=== PATIENT | female | born 1965 | race Hispanic/Latino ===

== ENCOUNTER 2017-07-21 09:25 | Outpatient (CLI) | payer BC, MEDICARE | END 2017-07-21 09:26 | disposition home or self-care (01) | LOC: ECHO 09:25 | PROVIDERS: ATTEND Internal Medicine | DX: I08.0 Rheumatic disorders of both mitral and aortic valves (principal); I10 Essential (primary) hypertension; F17.210 Nicotine dependence, cigarettes, uncomplicated; Z90.49 Acquired absence of other specified parts of digestive tract | CPT/HCPCS: 93306 ==

== ENCOUNTER 2017-10-11 08:34 | Outpatient (CLI) | payer MEDICARE ==
--- NOTE | 2017-10-11 11:09 | Ultrasound Report ---
ULTRASOUND THYROID SCAN HISTORY: Abnormal results of thyroid function studies. Findings: The thyroid gland is normal size, contour and echotexture. No evidence for nodule or cyst. A 1.1 x 0.7 x 1.2 cm subcutaneous cyst is noted in the left neck soft tissues. This may represent a sebaceous cyst. It has a benign appearance. IMPRESSION: Normal thyroid. Left neck subcutaneous cyst as described.
== END 2017-10-11 08:35 | disposition home or self-care (01) ==
LOC: US 08:34
PROVIDERS: ATTEND Nurse Practitioner
DX: E04.1 Nontoxic single thyroid nodule (principal); I10 Essential (primary) hypertension; F17.210 Nicotine dependence, cigarettes, uncomplicated; Z90.49 Acquired absence of other specified parts of digestive tract
CPT/HCPCS: 76536

== ENCOUNTER 2017-10-26 10:38 | Outpatient (CLI) | payer MEDICARE ==
--- NOTE | 2017-10-26 11:39 | Cat Scan Report ---
CT HEAD WITHOUT CONTRAST: HISTORY: Headache. TECHNIQUE: Sequential 2.5mm CT images. COMPARISON: none. FINDINGS: Cerebral Parenchyma: Within normal limits. Cerebellum: Within normal limits. Brainstem: Within normal limits. Ventricles: Normal. Sella: Normal. Extra-axial spaces: Normal. Basal Cisterns: Normal. Intracranial Hemorrhage: None. Midline Shift: None. Calvarium: Normal. Sinuses: Normal. Mastoid Air Cells: Normal. Visualized Orbits: Normal. IMPRESSION: Cranial CT scan within normal limits.
== END 2017-10-26 10:39 | disposition home or self-care (01) ==
LOC: CT 10:38
PROVIDERS: ATTEND Nurse Practitioner
DX: R51 Headache (principal); I10 Essential (primary) hypertension; F17.210 Nicotine dependence, cigarettes, uncomplicated; Z90.49 Acquired absence of other specified parts of digestive tract
CPT/HCPCS: 70450

== ENCOUNTER 2018-02-21 08:53 | Observation (INO) | payer MEDICARE ==
--- NOTE | 2018-02-21 09:41 | Emergency Department Report ---
ED General Adult HPI - General Chief complaint: High BP Stated complaint: HBP/HEADACHE/CHEST Time Seen by Provider: 02/21/18 09:13 Source: patient Mode of arrival: Ambulatory Limitations: No Limitations - History of Present Illness Initial comments: 53-year-old female with history of hypertension presents to ED with elevated blood pressure times a month. The patient states 5 months ago her BP medications were changed from bystolic and nifedipine to metoprolol and nifedipine due to loss of insurance. Patient says she has not been taking the nifedipine because it causes heart palpitations. States systolic BP has been in the 200s. Patient also reports intermittent chest pain, described as achy feeling for the last month. Reports associated shortness of breath. Denies nausea, vomiting, diaphoresis, leg pain or swelling. Patient seen one month ago here in this ED for similar complaints, had negative EKG, troponin, d-dimer. Patient was not admitted at that time. -: month(s) (1) Location: chest Severity scale (0 -10): 5 Quality: aching Consistency: intermittent Improves with: none Worsens with: none Associated Symptoms: chest pain, shortness of breath. denies: diaphoresis, fever/chills, headaches, nausea/vomiting - Related Data Home Medications Medication Instructions Recorded Confirmed Last Taken AtorvaSTATin [Lipitor] 10 mg PO QHS 01/09/18 01/09/18 01/08/18 Diclofenac Sodium 50 mg PO DAILY 01/09/18 01/09/18 01/08/18 HYDROcodone/APAP 7.5-325 [[place] 1 tab PO BID 01/09/18 01/09/18 01/08/18 7.5-325 mg TAB] Levothyroxine [Synthroid] 1 tab PO DAILY 01/09/18 01/09/18 01/08/18 NIFEdipine [Nifedipine] 40 mg PO QHS 01/09/18 01/09/18 01/08/18 Naloxegol Oxalate [Movantik] 25 mg PO DAILY 01/09/18 01/09/18 01/08/18 Nebivolol HCl [Bystolic] 5 mg PO DAILY 01/09/18 01/09/18 01/08/18 Omeprazole 1 tab PO DAILY 01/09/18 01/09/18 01/08/18 hydroCHLOROthiazide [HCTZ] 1 tab PO DAILY 1201/09/18 01/08/18 tiZANidine [Zanaflex] 1 - 2 tab PO DAILY 01/09/18 01/09/18 01/08/18 Previous Rx's Medication Instructions Recorded Last Taken Type Albuterol Sulfate [Ventolin HFA] 2 puff IH Q4H PRN #1 hfa.aer.ad 01/09/18 Unknown Rx Azithromycin 250 mg PO DAILY #4 tablet 01/09/18 Unknown Rx Benzonatate [Tessalon Perles] 100 mg PO Q8HR PRN #20 capsule 01/09/18 Unknown Rx predniSONE [Deltasone] 20 mg PO DAILY #5 tablet 01/09/18 Unknown Rx Furosemide [Lasix] 20 mg PO DAILY #14 tablet 01/25/18 Unknown Rx Potassium Chloride [K-Dur] 10 meq PO QDAY #14 tablet 01/25/18 Unknown Rx Allergies Allergy/AdvReac Type Severity Reaction Status Date / Time ibuprofen [From Motrin] Allergy Diarrhea Verified 09/18/14 22:08 ED Review of Systems ROS: Stated complaint: HBP/HEADACHE/CHEST Other details as noted in HPI Comment: All other systems reviewed and negative Constitutional: denies: chills, fever Respiratory: shortness of breath Cardiovascular: chest pain Gastrointestinal: denies: nausea, vomiting Musculoskeletal: other (denies leg pain or swelling) ED Past Medical Hx - Past Medical History Previous Medical History?: Yes Hx Hypertension: Yes Hx Psychiatric Treatment: Yes (Anxiety) Hx COPD: Yes (no home O2) Additional medical history: mitral valve regur. degenarative disc - Surgical History Past Surgical History?: Yes Hx Cholecystectomy: Yes Additional Surgical History: neck, Tubal ligation, - Social History Smoking Status: Current Every Day Smoker Substance Use Type: None - Medications Home Medications: Home Medications Medication Instructions Recorded Confirmed Last Taken Type Albuterol Sulfate [Ventolin HFA] 2 puff IH Q4H PRN #1 hfa.aer.ad 01/09/18 Unknown Rx AtorvaSTATin [Lipitor] 10 mg PO QHS 01/09/18 01/09/18 01/08/18 History Azithromycin 250 mg PO DAILY #4 tablet 01/09/18 Unknown Rx Benzonatate [Tessalon Perles] 100 mg PO Q8HR PRN #20 capsule 01/09/18 Unknown Rx Diclofenac Sodium 50 mg PO DAILY 01/09/18 01/09/18 01/08/18 History HYDROcodone/APAP 7.5-325 [[place] 1 tab PO BID 01/09/18 01/09/18 01/08/18 History 7.5-325 mg TAB] Levothyroxine [Synthroid] 1 tab PO DAILY 01/09/18 01/09/18 01/08/18 History NIFEdipine [Nifedipine] 40 mg PO QHS 01/09/18 01/09/18 01/08/18 History Naloxegol Oxalate [Movantik] 25 mg PO DAILY 01/09/18 01/09/18 01/08/18 History Nebivolol HCl [Bystolic] 5 mg PO DAILY 01/09/18 01/09/18 01/08/18 History Omeprazole 1 tab PO DAILY 01/09/18 01/09/18 01/08/18 History hydroCHLOROthiazide [HCTZ] 1 tab PO DAILY 01/09/18 01/09/18 01/08/18 History predniSONE [Deltasone] 20 mg PO DAILY #5 tablet 01/09/18 Unknown Rx tiZANidine [Zanaflex] 1 - 2 tab PO DAILY 01/09/18 01/09/18 01/08/18 History Furosemide [Lasix] 20 mg PO DAILY #14 tablet 01/25/18 Unknown Rx Potassium Chloride [K-Dur] 10 meq PO QDAY #14 tablet 01/25/18 Unknown Rx ED Physical Exam - General Limitations: No Limitations General appearance: alert, in no apparent distress - Head Head exam: Present: atraumatic, normocephalic - Eye Eye exam: Present: normal appearance - ENT ENT exam: Present: mucous membranes moist - Neck Neck exam: Present: normal inspection - Respiratory Respiratory exam: Present: normal lung sounds bilaterally. Absent: respiratory distress - Cardiovascular Cardiovascular Exam: Present: regular rate, normal rhythm - GI/Abdominal GI/Abdominal exam: Present: soft. Absent: distended - Extremities Exam Extremities exam: Absent: pedal edema, calf tenderness - Neurological Exam Neurological exam: Present: alert, oriented X3 - Psychiatric Psychiatric exam: Present: normal affect, normal mood - Skin Skin exam: Present: warm, dry, intact, normal color ED Course Vital Signs 02/21/18 02/21/18 02/21/18 08:58 09:17 09:30 Temperature 97.8 F Pulse Rate 65 65 57 L Respiratory 18 11 L 11 L Rate Blood Pressure 204/89 196/71 O2 Sat by Pulse 98 97 Oximetry 02/21/18 02/21/18 02/21/18 09:46 10:00 10:30 Temperature Pulse Rate 64 53 L 71 Respiratory 15 12 16 Rate Blood Pressure 169/82 169/82 174/77 O2 Sat by Pulse 97 97 93 Oximetry 02/21/18 11:00 Temperature Pulse Rate 46 L Respiratory 14 Rate Blood Pressure 167/71 O2 Sat by Pulse 97 Oximetry ED Medical Decision Making - Lab Data Result diagrams: 02/21/18 09:36 02/21/18 09:36 - EKG Data -: EKG Interpreted by Nh EKG shows normal: sinus rhythm, axis, intervals, QRS complexes Rate: normal - EKG Data Interpretation: other (T wave inversion in V2) - Radiology Data Radiology results: report reviewed, image reviewed Critical care attestation.: If time is entered above; I have spent that time in minutes in the direct care of this critically ill patient, excluding procedure time. ED Disposition Clinical Impression: Chest pain Disposition: OP ADMIT IP TO THIS HOSP Is pt being admited?: Yes Condition: Stable Instructions: Chest Pain (ED) Referrals: PRIMARY CARE, [Primary Care Provider] - 3-5 Days Time of Disposition: 10:38
--- NOTE | 2018-02-21 09:53 | XRay Report ---
AP CHEST: HISTORY: chest pain AP view of the chest demonstrates a normal mediastinal and cardiac contour with clear lungs and normal bony and soft tissue structures. Lower cervical fusion changes are noted. No change since IMPRESSION: Unremarkable AP chest.
[2018-02-21 10:07] LABS: Basophils # (Auto) 0.1 K/mm3 (0.0-0.1); Basophils % (Auto) 1.3 % (0.0-1.8); Eosinophils # (Auto) 0.6 K/mm3 (0.0-0.4); Eosinophils % (Auto) 7.5 % (0.0-4.3); Hematocrit 40.9 % (30.3-42.9); Hemoglobin 13.7 gm/dl (10.1-14.3); Lymphocytes # (Auto) 3.4 K/mm3 (1.2-5.4); Lymphocytes % (Auto) 40.4 % (13.4-35.0); Mean Corpuscular HGB Conc 34 % (30-34); Mean Corpuscular Volume 82 fl (79-97); Monocytes # (Auto) 0.8 K/mm3 (0.0-0.8); Monocytes % (Auto) 9.3 % (0.0-7.3); Platelet Count 199 K/mm3 (140-440); Red Cell Distribution Width 14.4 % (13.2-15.2)
[2018-02-21 10:27] LABS: BUN/Creatinine Ratio 14; Blood Urea Nitrogen 10 mg/dL (7-17); Calcium 9.3 mg/dL (8.4-10.2); Hemolysis Index 12
--- NOTE | 2018-02-21 13:08 | History and Physical Report ---
History of Present Illness Date of examination: 02/21/18 Date of admission: 02/21/18 10:38 Chief complaint: Chest pain History of present illness: 53-year-old female patient with significant history of hypertension presented to the emergency room with atypical chest pain headache and uncontrolled blood pressures, Patient was noncompliant with medications due to loss of her insurance and her bili peaked blood pressures this morning were [id number] systolic Patient denies nausea vomiting or abdominal pain Reports mild shortness of breath and mild headache EKG no acute ST T changes 2 sets of cardiac enzymes are negative Patient has significant history of ongoing tobacco use Past History Past Medical History: hypertension, hyperlipidemia, other (obesity, anxiety) Past Surgical History: cholecystectomy, Other (neck Surgery, tubal ligation) Social history: lives with family, smoking. denies: alcohol abuse, prescription drug abuse Family history: hypertension Medications and Allergies Allergies Allergy/AdvReac Type Severity Reaction Status Date / Time ibuprofen [From Motrin] Allergy Diarrhea Verified 09/18/14 22:08 Home Medications Medication Instructions Recorded Confirmed Last Taken Type Albuterol Sulfate [Ventolin HFA] 2 puff IH Q4H PRN #1 hfa.aer.ad 01/09/18 02/21/18 02/20/18 Rx AtorvaSTATin [Lipitor] 10 mg PO QHS 01/09/18 02/21/18 02/20/18 History Diclofenac Sodium 50 mg PO DAILY 01/09/18 02/21/18 02/20/18 History HYDROcodone/APAP 7.5-325 [[place] 1 tab PO BID 01/09/18 02/21/18 02/20/18 History 7.5-325 mg TAB] NIFEdipine [Nifedipine] 40 mg PO QHS 01/09/18 02/21/18 02/20/18 History Naloxegol Oxalate [Movantik] 25 mg PO DAILY 01/09/18 02/21/18 02/20/18 History tiZANidine [Zanaflex] 1 - 2 tab PO DAILY 01/09/18 02/21/18 02/20/18 History Review of Systems Constitutional: no weight loss, no weight gain Ears, nose, mouth and throat: no nasal congestion, no nasal discharge Cardiovascular: chest pain, high blood pressure, no orthopnea, no palpitations Respiratory: no cough, no cough with sputum, no shortness of breath Gastrointestinal: no abdominal pain, no nausea, no vomiting Genitourinary Female: no flank pain, no dysuria Musculoskeletal: no myalgias, no arthritis Integumentary: no rash, no pruritis Neurological: no paralysis, no weakness Psychiatric: anxiety, no depression Endocrine: no cold intolerance, no heat intolerance, no polydipsia, no polyuria Hematologic/Lymphatic: no easy bruising, no easy bleeding Allergic/Immunologic: no urticaria, no allergic rhinitis Exam - Constitutional Vitals: Temp Pulse Resp BP Pulse Ox 97.8 F 46 L 14 167/71 97 02/21/18 08:58 02/21/18 11:00 02/21/18 11:00 02/21/18 11:00 02/21/18 11:00 General appearance: Present: no acute distress, well-nourished, cachectic - EENT Eyes: Present: PERRL, EOM intact - Neck Neck: Present: supple, normal ROM - Respiratory Respiratory effort: normal Respiratory: bilateral: diminished, negative: rales, rhonchi, wheezing - Cardiovascular Rhythm: regular Heart Sounds: Present: S1 & S2 - Extremities Extremities: no ischemia, No edema - Abdominal General gastrointestinal: Present: soft, non-tender, non-distended, normal bowel sounds - Integumentary Integumentary: Present: clear, warm - Musculoskeletal Musculoskeletal: strength equal bilaterally - Psychiatric Psychiatric: appropriate mood/affect, cooperative - Neurologic Neurologic: CNII-XII intact, moves all extremities Results - Labs CBC & Chem 7: 02/21/18 09:36 02/21/18 09:36 Labs: Abnormal lab results 02/21/18 Range/Units 09:36 MCH 27 L (28-32) pg Lymph % (Auto) 40.4 H (13.4-35.0) % [place] % (Auto) 9.3 H (0.0-7.3) % Eos % (Auto) 7.5 H (0.0-4.3) % Eos # 0.6 H (0.0-0.4) K/mm3 Assessment and Plan --Chest pain: Serial cardiac enzymes Echocardiogram 6 months ago normal EF 55-60%, unable to give aspirin secondary to allergy Lexiscan stress test tomorrow, , Cardiology consultation if needed --Hypertensive urgency; present on admission, significant improvement continue current antihypertensives and when necessary medications --Ongoing tobacco use; smoking cessation counseling advised nicotine patch --Dyslipidemia; continue lipid-lowering medications --Obesity; counseling weight reduction Closely monitor the patient and adjust management as needed Plan of care reviewed with the patient
[2018-02-21] MEDS ORDERED: PROAIR IH PRN (13:09)
[2018-02-21] MEDS ORDERED: PROVENTIL IH PRN (13:17)
[2018-02-21] MEDS ORDERED: ZANAFLEX PO ONE (13:18)
[2018-02-21] MEDS ORDERED: HABITROL TD ONE (13:18)
[2018-02-21] MEDS ORDERED: APRESOLINE IV PRN (13:21)
[2018-02-21] MEDS ORDERED: ZANAFLEX ONE (13:32)
[2018-02-21] MEDS ORDERED: APRESOLINE ONE ×2 (13:35→14:50)
[2018-02-21] MEDS: APRESOLINE PO SCH ×2 (14:52→21:32)
[2018-02-21] MEDS: NORCO 5/325 PO PRN (17:50)
[2018-02-21] MEDS ORDERED: NORVASC PO SCH (22:00)
[2018-02-21] MEDS ORDERED: NIFEDIPINE 40 MG PO SCH (22:00)
[2018-02-21] MEDS ORDERED: LOVENOX SUB-Q SCH (22:00)
[2018-02-22] MEDS: APRESOLINE PO SCH ×3 (04:02→15:30)
[2018-02-22] MEDS: NORCO 5/325 PO PRN ×3 (04:02→19:03)
[2018-02-22] MEDS ORDERED: ZESTRIL PO SCH (10:00)
[2018-02-22] MEDS ORDERED: HABITROL TD SCH (10:00)
[2018-02-22] MEDS ORDERED: ZANAFLEX PO SCH (10:00)
[2018-02-22] MEDS ORDERED: NON-FORMULARY (Naloxegol Oxalate [Movantik] 25 MG) PO SCH ×2 (10:00)
[2018-02-22] MEDS ORDERED: LEXISCAN IV ONE (10:02)
[2018-02-22 17:40] VITALS: BP 128/63
--- NOTE | 2018-02-22 18:41 | Discharge Summary ---
Providers - Providers Date of Admission: 02/21/18 10:38 Date of discharge: 02/22/18 Attending physician: BRIDGETTE WANG Primary care physician: [employer] Hospitalization Reason for admission: Chest pain,uncontrolled BP Condition: Stable Pertinent studies: CXR : normal Stress test : negative for reversible ischemia,LVEF 70% Hospital course: 53-year-old female patient with significant history of hypertension was admitted through emergency room with atypical chest pain headache and uncontrolled blood pressures, Patient was noncompliant with medications due to loss of her insurance and her peak blood pressures at admission was [id number] systolic managed with multiple appropriate antihypertensives, blood pressures improved to reasonable levels. Patient also had atypical chest pain,had stress test which was negative and EF of 70%. Patient,s symptoms improved,today feels better ,no new complaints,vital signs s table Physical exam unremarkable. Stable at discharge Discharge Diagnosis: --Chest pain: non cardiac ,stress test negative,EF 70% --Non cardiac chest pain: probably sec to GERD --GERD : Protonix --Hypertensive urgency; present on admission, significant improvement --Ongoing tobacco use; smoking cessation counseling advised nicotine patch --Dyslipidemia; continue lipid-lowering medications --Obesity; counseling weight reduction Disposition: DC-01 TO HOME OR SELFCARE Time spent for discharge: 32 min Core Measure Documentation - Palliative Care Palliative Care/ Comfort Measures: Not Applicable - Core Measures Any of the following diagnoses?: none Exam - Constitutional Vitals: Temp Pulse Resp BP Pulse Ox 97.9 F 75 18 128/63 98 02/22/18 17:38 02/22/18 17:39 02/22/18 17:39 02/22/18 17:39 02/22/18 17:39 General appearance: Present: no acute distress, well-nourished - EENT Eyes: Present: PERRL, EOM intact - Neck Neck: Present: supple, normal ROM - Respiratory Respiratory effort: normal Respiratory: bilateral: diminished, negative: rales, rhonchi, wheezing - Cardiovascular Rhythm: regular Heart Sounds: Present: S1 & S2 - Extremities Extremities: no ischemia, No edema - Abdominal General gastrointestinal: Present: soft, non-tender, non-distended - Integumentary Integumentary: Present: clear, warm - Musculoskeletal Musculoskeletal: strength equal bilaterally - Psychiatric Psychiatric: appropriate mood/affect, cooperative - Neurologic Neurologic: moves all extremities Plan Activity: advance as tolerated Diet: low cholesterol, low salt Follow up with: PRIMARY CARE, [Primary Care Provider] - 3-5 Days GABRIELA OSORIO MD [Staff Physician] - 7 Days Prescriptions: Famotidine [Pepcid] 20 mg PO BID #20 tablet hydrALAZINE [Apresoline TAB] 25 mg PO Q8HR #90 tablet Lisinopril [Zestril TAB] 40 mg PO DAILY #30 tablet
--- NOTE | 2018-02-22 20:06 | Progress Note ---
Hospitalist Physical - Constitutional Vitals: Temp Pulse Resp BP Pulse Ox 97.9 F 75 18 128/63 98 02/22/18 17:38 02/22/18 17:39 02/22/18 17:39 02/22/18 17:39 02/22/18 17:39 General appearance: Present: no acute distress, well-nourished Results - Labs CBC & Chem 7: 02/21/18 09:36 02/21/18 09:36 Labs: Laboratory Last Values WBC 8.5 K/mm3 (4.5-11.0) 02/21/18 09:36 RBC 5.00 M/mm3 (3.65-5.03) 02/21/18 09:36 Hgb 13.7 gm/dl (10.1-14.3) 02/21/18 09:36 Hct 40.9 % (30.3-42.9) 02/21/18 09:36 MCV 82 fl (79-97) 02/21/18 09:36 MCH 27 pg (28-32) L 02/21/18 09:36 MCHC 34 % (30-34) 02/21/18 09:36 RDW 14.4 % (13.2-15.2) 02/21/18 09:36 Plt Count 199 K/mm3 (140-440) 02/21/18 09:36 Lymph % (Auto) 40.4 % (13.4-35.0) H 02/21/18 09:36 [place] % (Auto) 9.3 % (0.0-7.3) H 02/21/18 09:36 Eos % (Auto) 7.5 % (0.0-4.3) H 02/21/18 09:36 Baso % (Auto) 1.3 % (0.0-1.8) 02/21/18 09:36 Lymph # 3.4 K/mm3 (1.2-5.4) 02/21/18 09:36 [place] # 0.8 K/mm3 (0.0-0.8) 02/21/18 09:36 Eos # 0.6 K/mm3 (0.0-0.4) H 02/21/18 09:36 Baso # 0.1 K/mm3 (0.0-0.1) 02/21/18 09:36 Seg Neutrophils % 41.5 % (40.0-70.0) 02/21/18 09:36 Seg Neutrophils # 3.5 K/mm3 (1.8-7.7) 02/21/18 09:36 Sodium 141 mmol/L (137-145) 02/21/18 09:36 Potassium 4.2 mmol/L (3.6-5.0) 02/21/18 09:36 Chloride 102.6 mmol/L (98-107) 02/21/18 09:36 Carbon Dioxide 26 mmol/L (22-30) 02/21/18 09:36 Anion Gap 17 mmol/L 02/21/18 09:36 BUN 10 mg/dL (7-17) 02/21/18 09:36 Creatinine 0.7 mg/dL (0.7-1.2) 02/21/18 09:36 Estimated GFR > 60 ml/min 02/21/18 09:36 BUN/Creatinine Ratio 14 % 02/21/18 09:36 Glucose 96 mg/dL (65-100) 02/21/18 09:36 Calcium 9.3 mg/dL (8.4-10.2) 02/21/18 09:36 Troponin T < 0.010 ng/mL (0.00-0.029) 02/21/18 14:50
--- NOTE | 2018-02-22 20:16 | Treadmill Report ---
INDICATION: Chest pain. ORDERING PHYSICIAN: Yoselin Galindo MD FINDINGS: There is no scintigraphic evidence of myocardial ischemia. The left ventricle is normal in size and systolic function. The left ventricular ejection fraction is measured at 71%. Normal wall motion and wall thickening is noted on gated imaging. CONCLUSION: Normal perfusion scan. JOB# [id number] [id number]/[email or web address]
== END 2018-02-22 19:15 | disposition home or self-care (01) ==
LOC: ED 08:53 → 4A 10:38
PROVIDERS: ADMIT Internal Medicine; ATTEND Internal Medicine
DX: R07.89 Other chest pain (principal); I16.0 Hypertensive urgency; F17.200 Nicotine dependence, unspecified, uncomplicated; E78.5 Hyperlipidemia, unspecified; E66.9 Obesity, unspecified; F41.9 Anxiety disorder, unspecified
CPT/HCPCS: 36415; 71045; 78452; 80048; 84484; 85025; 93005; 93010; 93017; 96372; 96374; 99284; 99406; A9270; A9502; G0378; J0360; J1650; J2785; J3246

== ENCOUNTER 2018-02-27 15:00 | Emergency (ER) | payer MEDICARE ==
[2018-02-27 15:13] VITALS: BP 177/76
[2018-02-27] MEDS ORDERED: VISTARIL PO ONE (15:54)
[2018-02-27] MEDS ORDERED: CATAPRES PO ONE (15:55)
--- NOTE | 2018-02-27 15:59 | Emergency Department Report ---
ED General Adult HPI - General Chief complaint: High BP Stated complaint: HBP/FILOMENA/WEAKNESS/HEADACHE Time Seen by Provider: 02/27/18 15:31 Source: patient Mode of arrival: Ambulatory Limitations: No Limitations - History of Present Illness Initial comments: 53 yo cauc. female who was just dc from the hospital returns with concern that her bp is fluctuating. bp on arrival is slightly elevated. pt is anxious about the bp. the pt smells of cigarettes- and admits to ongoing smoking. she is fixated on needing her beta kelsey, metoprolol, which was dc during most recent hospitalization. I suspect bc of her large smoking habit and TAMMI. -: Gradual, days(s) Associated Symptoms: cough, shortness of breath. denies: confusion, chest pain, diaphoresis, fever/chills, headaches, loss of appetite, malaise, nausea/vomiting, rash, seizure, syncope, weakness - Related Data Home Medications Medication Instructions Recorded Confirmed Last Taken AtorvaSTATin [Lipitor] 10 mg PO QHS 01/09/18 02/21/18 02/20/18 Diclofenac Sodium 50 mg PO DAILY 01/09/18 02/21/18 02/20/18 HYDROcodone/APAP 7.5-325 [[place] 1 tab PO BID 01/09/18 02/21/18 02/20/18 7.5-325 mg TAB] Naloxegol Oxalate [Movantik] 25 mg PO DAILY 01/09/18 02/21/18 02/20/18 tiZANidine [Zanaflex] 1 - 2 tab PO DAILY 01/09/18 02/21/18 02/20/18 Previous Rx's Medication Instructions Recorded Last Taken Type Famotidine [Pepcid] 20 mg PO BID #20 tablet 02/22/18 Unknown Rx Lisinopril [Zestril TAB] 40 mg PO DAILY #30 tablet 02/22/18 Unknown Rx hydrALAZINE [Apresoline TAB] 25 mg PO Q8HR #90 tablet 02/22/18 Unknown Rx hydrOXYzine PAMOATE [Vistaril] 50 mg PO Q12H PRN #20 capsule 02/27/18 Unknown Rx Allergies Allergy/AdvReac Type Severity Reaction Status Date / Time ibuprofen [From Motrin] Allergy Diarrhea Verified 09/18/14 22:08 ED Review of Systems ROS: Stated complaint: HBP/FILOMENA/WEAKNESS/HEADACHE Other details as noted in HPI Comment: All other systems reviewed and negative Constitutional: denies: chills Eyes: denies: eye pain ENT: denies: ear pain Respiratory: see HPI, cough, shortness of breath. denies: orthopnea Cardiovascular: as per HPI Endocrine: denies: excessive sweating Gastrointestinal: denies: abdominal pain Genitourinary: denies: urgency Musculoskeletal: denies: back pain Skin: denies: as per HPI Neurological: denies: headache Psychiatric: denies: anxiety Hematological/Lymphatic: denies: as per HPI ED Past Medical Hx - Past Medical History Hx Hypertension: Yes Hx Psychiatric Treatment: Yes (Anxiety) Hx COPD: Yes (no home O2) Additional medical history: MVP, hypothyroidism. degenarative disc. tammi - Surgical History Hx Cholecystectomy: Yes Additional Surgical History: neck, Tubal ligation, - Social History Smoking Status: Current Every Day Smoker Substance Use Type: None - Medications Home Medications: Home Medications Medication Instructions Recorded Confirmed Last Taken Type AtorvaSTATin [Lipitor] 10 mg PO QHS 01/09/18 02/21/18 02/20/18 History Diclofenac Sodium 50 mg PO DAILY 01/09/18 02/21/18 02/20/18 History HYDROcodone/APAP 7.5-325 [[place] 1 tab PO BID 01/09/18 02/21/18 02/20/18 History 7.5-325 mg TAB] Naloxegol Oxalate [Movantik] 25 mg PO DAILY 01/09/18 02/21/18 02/20/18 History tiZANidine [Zanaflex] 1 - 2 tab PO DAILY 01/09/18 02/21/18 02/20/18 History Famotidine [Pepcid] 20 mg PO BID #20 tablet 02/22/18 Unknown Rx Lisinopril [Zestril TAB] 40 mg PO DAILY #30 tablet 02/22/18 Unknown Rx hydrALAZINE [Apresoline TAB] 25 mg PO Q8HR #90 tablet 02/22/18 Unknown Rx hydrOXYzine PAMOATE [Vistaril] 50 mg PO Q12H PRN #20 capsule 02/27/18 Unknown Rx ED Physical Exam - General Limitations: No Limitations General appearance: alert - Head Head exam: Present: atraumatic - Eye Eye exam: Present: normal appearance, PERRL Pupils: Present: normal accommodation - ENT ENT exam: Present: mucous membranes moist - Neck Neck exam: Present: normal inspection - Respiratory Respiratory exam: Present: normal lung sounds bilaterally - GI/Abdominal GI/Abdominal exam: Present: soft, normal bowel sounds - Rectal Rectal exam: Present: deferred - Extremities Exam Extremities exam: Present: normal inspection - Back Exam Back exam: Present: normal inspection, full ROM - Neurological Exam Neurological exam: Present: alert, oriented X3 - Psychiatric Psychiatric exam: Present: anxious - Skin Skin exam: Present: warm, dry ED Course Vital Signs 02/27/18 02/27/18 02/27/18 15:06 15:40 16:05 Temperature 97.5 F L Pulse Rate 99 H 99 H Respiratory 18 15 Rate Blood Pressure 177/76 177/76 O2 Sat by Pulse 97 Oximetry ED Medical Decision Making - EKG Data EKG shows normal: sinus rhythm Rate: normal - EKG Data When compared to previous EKG there are: no significant change Interpretation: no acute changes, other (normal nuc last week) - Medical Decision Making long discussion with pt and her sister. insurance resumes in 10 days at that time she can see her pcp, cardiology and pulmonary doctor who can discuss use or not of beta kelsey in the meantime pt will continue her current meds- see med rec pt wanting anxiety med. i told her we would not given her klonopin as asking but would use vistaril for short term. dc home with sister. - Differential Diagnosis anxiety Critical care attestation.: If time is entered above; I have spent that time in minutes in the direct care of this critically ill patient, excluding procedure time. ED Disposition Clinical Impression: HTN (hypertension), Anxiety Disposition: DC-01 TO HOME OR SELFCARE Is pt being admited?: No Does the pt Need Aspirin: No Condition: Stable Instructions: Hypertension (ED) Additional Instructions: low fat diet drink a lot of water every day- 2 gallon no fried food walk 30 minutes each day stop smoking follow up with pcp cindy vistaril for anxiety follow up with cardiology cindy= and discuss your beta kelsey he will consult with your pulmonology MD due to your COPD and TAMMI Prescriptions: hydrOXYzine PAMOATE [Vistaril] 50 mg PO Q12H PRN #20 capsule PRN Reason: Anxiety Referrals: PRADEEP BRENNAN MD [Primary Care Provider] - 3-5 Days Time of Disposition: 15:56
== END 2018-02-27 16:18 | disposition home or self-care (01) ==
LOC: ED 15:00
DX: I10 Essential (primary) hypertension (principal); F41.9 Anxiety disorder, unspecified; J44.9 Chronic obstructive pulmonary disease, unspecified; E03.9 Hypothyroidism, unspecified; F17.200 Nicotine dependence, unspecified, uncomplicated; Z90.49 Acquired absence of other specified parts of digestive tract; Z98.51 Tubal ligation status; Z88.5 Allergy status to narcotic agent
CPT/HCPCS: 93005; 93010; 99282

== ENCOUNTER 2018-04-05 07:31 | Emergency (ER) | payer MEDICARE ==
[2018-04-05 07:36] VITALS: BP 164/57
[2018-04-05] MEDS ORDERED: LIDOCAINE VISCOUS 2% PO ONE (09:01)
[2018-04-05] MEDS ORDERED: MUCINEX ER PO ONE (09:01)
[2018-04-05] MEDS ORDERED: TYLENOL PO ONE (09:02)
--- NOTE | 2018-04-05 09:05 | Emergency Department Report ---
Minor Respiratory - HPI Chief Complaint: Upper Respiratory Infection Stated Complaint: FLU SYMPTOMS Time Seen by Provider: 04/05/18 08:47 Duration: 1 Day Pain Location: Throat Severity: mild Minor Respiratory: Yes Sore Throat, Yes Able to Tolerate Fluids, Yes Cough, No Rhinorrhea, No Ear Pain, No Sick Contacts, No Hemoptysis, No Chest Pain, No Shortness of Breath, No Fever Other History: 63-year-old female who presents with cough cold and nasal congestion and sore throat that started yesterday. She denies fevers/chills/nausea vomiting, chest pain, shortness of breath. ED Review of Systems ROS: Stated complaint: FLU SYMPTOMS Other details as noted in HPI Comment: All other systems reviewed and negative ED Past Medical Hx - Past Medical History Hx Hypertension: Yes Hx Psychiatric Treatment: Yes (Anxiety) Hx COPD: Yes (no home O2) Additional medical history: MVP, hypothyroidism. degenarative disc. elia - Surgical History Hx Cholecystectomy: Yes Additional Surgical History: neck, Tubal ligation, - Social History Smoking Status: Current Every Day Smoker Substance Use Type: None - Medications Home Medications: Home Medications Medication Instructions Recorded Confirmed Last Taken Type AtorvaSTATin [Lipitor] 10 mg PO QHS 01/09/18 02/21/18 02/20/18 History Diclofenac Sodium 50 mg PO DAILY 01/09/18 02/21/18 02/20/18 History HYDROcodone/APAP 7.5-325 [[place] 1 tab PO BID 01/09/18 02/21/18 02/20/18 History 7.5-325 mg TAB] Naloxegol Oxalate [Movantik] 25 mg PO DAILY 01/09/18 02/21/18 02/20/18 History tiZANidine [Zanaflex] 1 - 2 tab PO DAILY 01/09/18 02/21/18 02/20/18 History Famotidine [Pepcid] 20 mg PO BID #20 tablet 02/22/18 Unknown Rx Lisinopril [Zestril TAB] 40 mg PO DAILY #30 tablet 02/22/18 Unknown Rx hydrALAZINE [Apresoline TAB] 25 mg PO Q8HR #90 tablet 02/22/18 Unknown Rx hydrOXYzine PAMOATE [Vistaril] 50 mg PO Q12H PRN #20 capsule 02/27/18 Unknown Rx Amoxicillin/Potassium Clav 1 each PO BID #14 tablet 04/05/18 Unknown Rx [Augmentin 875-125 Tablet] Nystas/Diphen/Xyl Visc/Mylanta 30 ml MM Q4H PRN #120 ml 04/05/18 Unknown Rx [Magic Mouthwash] guaiFENesin ER [Mucinex ER] 600 mg PO DAILY #10 tablet 04/05/18 Unknown Rx Minor Respiratory Exam - Exam General: Vital signs noted. No distress. Alert and acting appropriately. HEENT: Yes Moist Mucous Membranes, Yes Maxillary Tenderness, No Pharyngeal Erythema, No Pharyngeal Exudates, No Rhinorrhea, No Conjuctival Injection, No Frontal Tenderness Ear: Neither TM Bulge, Neither TM Erythema, Neither EAC Pain, Neither EAC Discharge Neck: Yes Adenopathy (cervical anterior), Yes Supple Lungs: Yes Good Air Exchange, No Wheezes, No Ronchi, No Stridor, No Cough, No Labored Respirations, No Retractions, No Use of Accessory Muscles, No Other Abnormal Lung Sounds Heart: Yes Regular, No Murmur Abdomen: Yes Normal Bowel Sounds, No Tenderness, No Peritoneal Signs Skin: No Rash, No Edema Neurologic: Alert and oriented, no deficits. Musculoskeletal: Unremarkable. ED Course Vital Signs 04/05/18 07:34 Temperature 98.6 F Pulse Rate 69 Respiratory 18 Rate Blood Pressure 164/57 O2 Sat by Pulse 99 Oximetry ED Medical Decision Making - Radiology Data Radiology results: report reviewed, image reviewed Fluoro Time In Minutes: ROUTINE CHEST, TWO VIEWS: HISTORY: Productive cough. The trachea, heart, mediastinal contour, lung gracia and bony thorax are unremarkable. No significant change since 02/21/18. IMPRESSION: Unremarkable chest x-ray. Transcribed By: TTR Dictated By: ZULEIMA BOATENG JR, MD Electronically Authenticated By: ZULEIMA BOATENG JR, MD Signed Date/Time: 04/05/18 0937 - Medical Decision Making 53-year-old female presents with sinusitis Patient received medication ED. Discussed the patient to follow up with primary care physician. Vital signs are normal she is in no acute respiratory distress. Critical care attestation.: If time is entered above; I have spent that time in minutes in the direct care of this critically ill patient, excluding procedure time. ED Disposition Clinical Impression: Sinusitis, Upper respiratory infection Disposition: DC-01 TO HOME OR SELFCARE Is pt being admited?: No Does the pt Need Aspirin: No Condition: Stable Instructions: Sinusitis (ED), Upper Respiratory Infection (ED), Viral Syndrome (ED) Additional Instructions: Make sure to follow up with the primary care physician as discussed. Take all your medications as you've been prescribed. If you have any worsening symptoms or develop new symptoms please return to ED immediately. Prescriptions: Amoxicillin/Potassium Clav [Augmentin 875-125 Tablet] 1 each PO BID #14 tablet guaiFENesin ER [Mucinex ER] 600 mg PO DAILY #10 tablet Nystas/Diphen/Xyl Visc/Mylanta [Magic Mouthwash] 30 ml MM Q4H PRN #120 ml PRN Reason: Sore Throat Referrals: SANTI MUNGUIA MD [Primary Care Provider] - 3-5 Days Forms: Work/School Release Form(ED) Time of Disposition: 10:16
--- NOTE | 2018-04-05 09:41 | XRay Report ---
ROUTINE CHEST, TWO VIEWS: HISTORY: Productive cough. The trachea, heart, mediastinal contour, lung gracia and bony thorax are unremarkable. No significant change since 02/21/18. IMPRESSION: Unremarkable chest x-ray.
== END 2018-04-05 10:30 | disposition home or self-care (01) ==
LOC: ED 07:31
DX: J01.90 Acute sinusitis, unspecified (principal); J06.9 Acute upper respiratory infection, unspecified; I10 Essential (primary) hypertension; F41.9 Anxiety disorder, unspecified; J44.9 Chronic obstructive pulmonary disease, unspecified; F17.200 Nicotine dependence, unspecified, uncomplicated; Z88.6 Allergy status to analgesic agent
CPT/HCPCS: 71046; 99283

== ENCOUNTER 2018-04-17 13:39 | Emergency (ER) | payer MEDICARE ==
--- NOTE | 2018-04-17 13:54 | Emergency Department Report ---
Blank Doc - Documentation Documentation: This is a 53-year-old female that presents with elevated b/p in PCP clinic and came to the ED. In triage b/p is at 160/55. Also stated has some SOB and ches pain. This initial assessment/diagnostic orders/clinical plan/treatment(s) is/are subject to change based on patient's health status, clinical progression and re- assessment by fellow clinical providers in the ED. Further treatment and workup at subsequent clinical providers discretion. Patient/guardians urged not to elope from the ED as their condition may be serious if not clinically assessed and managed. Initial orders include: 1- Patient sent to MAIN ED for further evaluation and treatment 2- labs 3- EKG 4- CXR
[2018-04-17 14:38] LABS: Basophils % (Auto) 0.5 % (0.0-1.8); Eosinophils # (Auto) 0.7 K/mm3 (0.0-0.4); Eosinophils % (Auto) 8.6 % (0.0-4.3); Hematocrit 38.8 % (30.3-42.9); Hemoglobin 12.8 gm/dl (10.1-14.3); Lymphocytes # (Auto) 2.5 K/mm3 (1.2-5.4); Lymphocytes % (Auto) 32.5 % (13.4-35.0); Mean Corpuscular HGB Conc 33 % (30-34); Mean Corpuscular Volume 80 fl (79-97); Monocytes # (Auto) 0.5 K/mm3 (0.0-0.8); Monocytes % (Auto) 6.8 % (0.0-7.3); Platelet Count 218 K/mm3 (140-440); Red Blood Count 4.82 M/mm3 (3.65-5.03)
--- NOTE | 2018-04-17 14:43 | XRay Report ---
ROUTINE CHEST, TWO VIEWS: HISTORY: chest pain. The trachea, heart, mediastinal contour, lung gracia and bony thorax are unremarkable. IMPRESSION: Unremarkable chest x-ray. No change since 04/05/16.
[2018-04-17 14:48] LABS: INR 0.87 (0.87-1.13)
[2018-04-17 14:49] LABS: Partial Thromboplastin Time 34.9 Sec. (24.2-36.6)
[2018-04-17 14:52] LABS: BUN/Creatinine Ratio 23; Blood Urea Nitrogen 14 mg/dL (7-17); Calcium 9.3 mg/dL (8.4-10.2); Hemolysis Index 7
[2018-04-17 19:21] VITALS: BP 180/53
== END 2018-04-17 21:00 | disposition left against medical advice (07) ==
LOC: ED 13:39
DX: I10 Essential (primary) hypertension (principal); Z53.21 Procedure and treatment not carried out due to patient leaving prior to being seen by health care provider
CPT/HCPCS: 36415; 71046; 80048; 84484; 85025; 85610; 85730; 93005; 93010

== ENCOUNTER 2018-08-31 06:22 | Emergency (ER) | payer MEDICARE ==
[2018-08-31 06:26] VITALS: BP 118/80
[2018-08-31] MEDS ORDERED: DELTASONE PO ONE (06:37)
[2018-08-31] MEDS ORDERED: BENADRYL PO ONE (06:37)
[2018-08-31] MEDS ORDERED: TYLENOL PO ONE (06:38)
--- NOTE | 2018-08-31 06:43 | Emergency Department Report ---
ED ENT HPI - General Chief complaint: Earache Stated complaint: RIGHT EAR PAIN/SINUS PRESSURE Time Seen by Provider: 08/31/18 06:36 Source: patient Mode of arrival: Ambulatory Limitations: No Limitations - History of Present Illness Initial comments: pt is a 53 y/o w/f who presents for sinus pain and pressure with right ear pain x 1 week pt states post nasal drip yellow brown foul taste , symptoms are exacerbated by position and movement , symptoms are improved by nothing tried. states low grade fever for past 3 days MD complaint: ear pain, other (sinus pain and pressure ) Onset/Timin -: week(s) Location: R ear, other (bilat maxillary sinus pain and pressure ) Severity: moderate Severity scale (0 -10): 5 Quality: sharp Consistency: constant Improves with: none Worsens with: position, movement Associated Symptoms: fever, cough, rhinorrhea - Related Data Home Medications Medication Instructions Recorded Confirmed Last Taken AtorvaSTATin [Lipitor] 10 mg PO QHS 01/09/18 05/27/18 02/20/18 Diclofenac Sodium 50 mg PO DAILY 01/09/18 05/27/18 02/20/18 Naloxegol Oxalate [Movantik] 25 mg PO DAILY 01/09/18 05/27/18 02/20/18 tiZANidine [Zanaflex 4mg TAB] 1 - 2 tab PO DAILY 01/09/18 05/27/18 02/20/18 Linaclotide [Linzess] 72 mcg PO QAM 05/29/18 05/29/18 Unknown Previous Rx's Medication Instructions Recorded Last Taken Type Famotidine [Pepcid] 20 mg PO BID #20 tablet 02/22/18 Unknown Rx hydrOXYzine PAMOATE [Vistaril] 50 mg PO Q12H PRN #20 capsule 02/27/18 Unknown Rx Nystas/Diphen/Xyl Visc/Mylanta 30 ml MM Q4H PRN #120 ml 04/05/18 Unknown Rx [Magic Mouthwash] guaiFENesin ER [Mucinex ER] 600 mg PO DAILY #10 tablet 04/05/18 Unknown Rx Azithromycin 250 mg PO DAILY #2 tablet 05/29/18 Unknown Rx Ipratropium/Albuter (Nf) 2 puff IH QID PRN #1 inha 05/29/18 Unknown Rx [Combivent (Nf)] Nicotine [Habitrol] 14 mg TD QDAY #30 patch 05/29/18 Unknown Rx Prednisone [predniSONE 10 mg 10 mg PO .TAPER #1 tab.ds.pk 05/29/18 Unknown Rx (6-Day Pack, 21 Tabs)] clonazePAM [KlonoPIN] 1 mg PO BID tablet 05/29/18 Unknown Rx Acetaminophen [Acetaminophen TAB] 1,000 mg PO Q6HR PRN #30 tablet 08/31/18 Unknown Rx Amoxicillin/Potassium Clav 1 each PO BID 10 Days #20 tablet 08/31/18 Unknown Rx [Augmentin 875-125 Tablet] Fluticasone [Flonase] 1 spray NS QDAY #1 bottle 08/31/18 Unknown Rx diphenhydrAMINE [Benadryl CAP] 25 mg PO Q6HR PRN #30 capsule 08/31/18 Unknown Rx Allergies Allergy/AdvReac Type Severity Reaction Status Date / Time ibuprofen [From Motrin] Allergy Diarrhea Verified 05/27/18 16:02 ED Dental HPI - General Chief complaint: Earache Stated complaint: RIGHT EAR PAIN/SINUS PRESSURE Time Seen by Provider: 08/31/18 06:36 Source: patient Mode of arrival: Ambulatory Limitations: No Limitations - Related Data Home Medications Medication Instructions Recorded Confirmed Last Taken AtorvaSTATin [Lipitor] 10 mg PO QHS 01/09/18 05/27/18 02/20/18 Diclofenac Sodium 50 mg PO DAILY 01/09/18 05/27/18 02/20/18 Naloxegol Oxalate [Movantik] 25 mg PO DAILY 01/09/18 05/27/18 02/20/18 tiZANidine [Zanaflex 4mg TAB] 1 - 2 tab PO DAILY 01/09/18 05/27/18 02/20/18 Linaclotide [Linzess] 72 mcg PO QAM 05/29/18 05/29/18 Unknown Previous Rx's Medication Instructions Recorded Last Taken Type Famotidine [Pepcid] 20 mg PO BID #20 tablet 02/22/18 Unknown Rx hydrOXYzine PAMOATE [Vistaril] 50 mg PO Q12H PRN #20 capsule 02/27/18 Unknown Rx Nystas/Diphen/Xyl Visc/Mylanta 30 ml MM Q4H PRN #120 ml 04/05/18 Unknown Rx [Magic Mouthwash] guaiFENesin ER [Mucinex ER] 600 mg PO DAILY #10 tablet 04/05/18 Unknown Rx Azithromycin 250 mg PO DAILY #2 tablet 05/29/18 Unknown Rx Ipratropium/Albuter (Nf) 2 puff IH QID PRN #1 inha 05/29/18 Unknown Rx [Combivent (Nf)] Nicotine [Habitrol] 14 mg TD QDAY #30 patch 05/29/18 Unknown Rx Prednisone [predniSONE 10 mg 10 mg PO .TAPER #1 tab.ds.pk 05/29/18 Unknown Rx (6-Day Pack, 21 Tabs)] clonazePAM [KlonoPIN] 1 mg PO BID tablet 05/29/18 Unknown Rx Acetaminophen [Acetaminophen TAB] 1,000 mg PO Q6HR PRN #30 tablet 08/31/18 Unknown Rx Amoxicillin/Potassium Clav 1 each PO BID 10 Days #20 tablet 08/31/18 Unknown Rx [Augmentin 875-125 Tablet] Fluticasone [Flonase] 1 spray NS QDAY #1 bottle 08/31/18 Unknown Rx diphenhydrAMINE [Benadryl CAP] 25 mg PO Q6HR PRN #30 capsule 08/31/18 Unknown Rx Allergies Allergy/AdvReac Type Severity Reaction Status Date / Time ibuprofen [From Motrin] Allergy Diarrhea Verified 05/27/18 16:02 ED Review of Systems ROS: Stated complaint: RIGHT EAR PAIN/SINUS PRESSURE Other details as noted in HPI Constitutional: fever Eyes: denies: eye pain, eye discharge, vision change ENT: ear pain, congestion Respiratory: cough. denies: shortness of breath, wheezing Cardiovascular: denies: chest pain, palpitations Endocrine: no symptoms reported Gastrointestinal: denies: abdominal pain, nausea, vomiting, diarrhea Genitourinary: denies: urgency, dysuria, discharge Musculoskeletal: denies: back pain, joint swelling, arthralgia Skin: denies: rash, lesions Neurological: denies: headache, weakness, paresthesias, vertigo Psychiatric: denies: anxiety, depression Hematological/Lymphatic: denies: easy bleeding, easy bruising ED Past Medical Hx - Past Medical History Hx Hypertension: Yes Hx Psychiatric Treatment: Yes (Anxiety) Hx COPD: Yes Additional medical history: MVP, hypothyroidism. degenarative disc. elia; fibromyalgia - Surgical History Hx Cholecystectomy: Yes Additional Surgical History: neck, Tubal ligation, - Social History Smoking Status: Current Every Day Smoker Substance Use Type: None - Medications Home Medications: Home Medications Medication Instructions Recorded Confirmed Last Taken Type AtorvaSTATin [Lipitor] 10 mg PO QHS 01/09/18 05/27/18 02/20/18 History Diclofenac Sodium 50 mg PO DAILY 01/09/18 05/27/18 02/20/18 History Naloxegol Oxalate [Movantik] 25 mg PO DAILY 01/09/18 05/27/18 02/20/18 History tiZANidine [Zanaflex 4mg TAB] 1 - 2 tab PO DAILY 01/09/18 05/27/18 02/20/18 History Famotidine [Pepcid] 20 mg PO BID #20 tablet 02/22/18 05/27/18 Unknown Rx hydrOXYzine PAMOATE [Vistaril] 50 mg PO Q12H PRN #20 capsule 02/27/18 05/27/18 Unknown Rx Nystas/Diphen/Xyl Visc/Mylanta 30 ml MM Q4H PRN #120 ml 04/05/18 05/27/18 Unknown Rx [Magic Mouthwash] guaiFENesin ER [Mucinex ER] 600 mg PO DAILY #10 tablet 04/05/18 05/27/18 Unknown Rx Azithromycin 250 mg PO DAILY #2 tablet 05/29/18 Unknown Rx Ipratropium/Albuter (Nf) 2 puff IH QID PRN #1 inha 05/29/18 Unknown Rx [Combivent (Nf)] Linaclotide [Linzess] 72 mcg PO QAM 05/29/18 05/29/18 Unknown History Nicotine [Habitrol] 14 mg TD QDAY #30 patch 05/29/18 Unknown Rx Prednisone [predniSONE 10 mg 10 mg PO .TAPER #1 tab.ds.pk 05/29/18 Unknown Rx (6-Day Pack, 21 Tabs)] clonazePAM [KlonoPIN] 1 mg PO BID tablet 05/29/18 Unknown Rx Acetaminophen [Acetaminophen TAB] 1,000 mg PO Q6HR PRN #30 tablet 08/31/18 Unknown Rx Amoxicillin/Potassium Clav 1 each PO BID 10 Days #20 tablet 08/31/18 Unknown Rx [Augmentin 875-125 Tablet] Fluticasone [Flonase] 1 spray NS QDAY #1 bottle 08/31/18 Unknown Rx diphenhydrAMINE [Benadryl CAP] 25 mg PO Q6HR PRN #30 capsule 08/31/18 Unknown Rx ED Physical Exam - General Limitations: No Limitations General appearance: alert, in no apparent distress - Head Head exam: Present: atraumatic, normocephalic - Eye Eye exam: Present: normal appearance, EOMI Pupils: Present: normal accommodation - ENT ENT exam: Present: mucous membranes moist, TM's normal bilaterally, normal external ear exam, other (bilat maxillary sinus pain and swelling mild erythema ) - Expanded ENT Exam Expanded Ear exam: Present: normal external inspection Mouth exam: Absent: trismus Teeth exam: Present: normal inspection Throat exam: Positive: normal inspection, tonsillar erythema, tonsillomegaly, other (uvula midline no stridor no wheezing no exudate no lesions ). Negative: tonsillar exudate, R peritonsillar mass, L peritonsillar mass - Neck Neck exam: Present: normal inspection, full ROM, lymphadenopathy. Absent: tenderness, meningismus, thyromegaly - Expanded Neck Exam Expanded Neck exam: Present: tenderness. Absent: midline deformity, anterior neck swelling, thyroid mass, carotid bruit, tracheal deviation - Respiratory Respiratory exam: Present: normal lung sounds bilaterally. Absent: respiratory distress, wheezes, stridor, chest wall tenderness - Cardiovascular Cardiovascular Exam: Present: regular rate, normal rhythm, normal heart sounds. Absent: systolic murmur, diastolic murmur, rubs, gallop - GI/Abdominal GI/Abdominal exam: Present: soft, normal bowel sounds. Absent: guarding, rebound, bruit, hernia - Rectal Rectal exam: Present: deferred - External exam: Present: other (deferred ) - Extremities Exam Extremities exam: Present: normal inspection, full ROM, tenderness, normal capillary refill. Absent: pedal edema, joint swelling, calf tenderness - Back Exam Back exam: Present: full ROM, tenderness, vertebral tenderness. Absent: CVA tenderness (R), CVA tenderness (L), muscle spasm, paraspinal tenderness, rash noted - Neurological Exam Neurological exam: Present: alert, oriented X3, CN II-XII intact, abnormal gait, motor sensory deficit, reflexes normal - Psychiatric Psychiatric exam: Present: normal affect, normal mood - Skin Skin exam: Present: warm, dry, intact, normal color. Absent: rash ED Course Vital Signs 08/31/18 06:23 Temperature 96.9 F L Pulse Rate 72 Respiratory 18 Rate Blood Pressure 118/80 O2 Sat by Pulse 96 Oximetry ED Medical Decision Making - Medical Decision Making this is sinusitis plan: dc to home with rx for augmentin, benadryl, flonase, tylenol follow up with pcp in 2-3 days Critical care attestation.: If time is entered above; I have spent that time in minutes in the direct care of this critically ill patient, excluding procedure time. ED Disposition Clinical Impression: Sinusitis Qualifiers: Sinusitis location: maxillary Chronicity: acute Recurrence: non-recurrent Qualified Code(s): J01.00 - Acute maxillary sinusitis, unspecified Disposition: DC-01 TO HOME OR SELFCARE Is pt being admited?: No Does the pt Need Aspirin: No Condition: Stable Instructions: Sinusitis (ED) Prescriptions: Acetaminophen [Acetaminophen TAB] 1,000 mg PO Q6HR PRN #30 tablet PRN Reason: pain Amoxicillin/Potassium Clav [Augmentin 875-125 Tablet] 1 each PO BID 10 Days #20 tablet diphenhydrAMINE [Benadryl CAP] 25 mg PO Q6HR PRN #30 capsule PRN Reason: sinus pressure congestion Fluticasone [Flonase] 1 spray NS QDAY #1 bottle Referrals: [facility] [Outside] - 3-5 Days Forms: Work/School Release Form(ED) Time of Disposition: 06:55
== END 2018-08-31 07:05 | disposition home or self-care (01) ==
LOC: ED 06:22
DX: J01.00 Acute maxillary sinusitis, unspecified (principal); I10 Essential (primary) hypertension; F41.9 Anxiety disorder, unspecified; J44.9 Chronic obstructive pulmonary disease, unspecified; E03.9 Hypothyroidism, unspecified; F17.200 Nicotine dependence, unspecified, uncomplicated; Z90.49 Acquired absence of other specified parts of digestive tract
CPT/HCPCS: 99282; J7512

== ENCOUNTER 2018-11-23 10:55 | Emergency (ER) | payer MEDICARE ==
[2018-11-23] MEDS ORDERED: PROVENTIL IH ONE (11:10)
[2018-11-23] MEDS ORDERED: SOLU-Medrol IV ONE (11:10)
--- NOTE | 2018-11-23 11:12 | Emergency Department Report ---
ED Asthma HPI - General Chief Complaint: Dyspnea/Respdistress Stated Complaint: SOB Time Seen by Provider: 11/23/18 11:06 Source: patient Mode of arrival: Ambulatory Limitations: No Limitations - History of Present Illness Initial Comments: 53 yo cauc. female known to us. Sheh as COPD and continues to smoke. Ran out of her inhaler and comes to ER co SOB. No fever. No sputum. Home meds belbuca diclofenac lisinopril hctz hydroxyzine ompeprazole tizanidine PCP Dr Parra Denies CP. Denies fever or chills. Denies sputum. Ambulatory to ER MD Complaint: shortness of breath -: Gradual, days(s) Asthma History: childhood onset, followed by specialist Severity: mild Context: ran out of meds, medication non-compliance Associated Symptoms: none - Related Data Current Asthma Therapy: none Home Medications Medication Instructions Recorded Confirmed Last Taken Diclofenac Sodium 50 mg PO DAILY 01/09/18 05/27/18 02/20/18 tiZANidine [Zanaflex 4mg TAB] 1 - 2 tab PO DAILY 01/09/18 05/27/18 02/20/18 Previous Rx's Medication Instructions Recorded Last Taken Type hydrOXYzine PAMOATE [Vistaril] 50 mg PO Q12H PRN #20 capsule 02/27/18 Unknown Rx Ipratropium/Albuter (Nf) 2 puff IH QID PRN #1 inha 05/29/18 Unknown Rx [Combivent (Nf)] Albuterol Sulfate [Proair 90 mcg IH QID PRN #1 aer.pow.ba 11/23/18 Unknown Rx Respiclick] Fluticasone [Flonase] 1 spray NS QDAY #1 bottle 11/23/18 Unknown Rx methylPREDNISolone [Medrol 4MG 4 mg PO UNK #1 tab.ds.pk 11/23/18 Unknown Rx DOSEPAK (21 tabs)] Allergies Allergy/AdvReac Type Severity Reaction Status Date / Time ibuprofen [From Motrin] Allergy Diarrhea Verified 05/27/18 16:02 ED Review of Systems ROS: Stated complaint: SOB Other details as noted in HPI Comment: All other systems reviewed and negative ED Past Medical Hx - Past Medical History Previous Medical History?: Yes Hx Hypertension: Yes Hx CVA: No Hx Heart Attack/AMI: No Hx Congestive Heart Failure: No Hx Diabetes: No Hx Deep Vein Thrombosis: No Hx Pulmonary Embolism: No Hx GERD: No Hx Liver Disease: No Hx Renal Disease: No Hx of Cancer: No Hx Sickle Cell Disease: No Hx Arthritis: No Hx Headaches / Migraines: No Hx Seizures: No Hx Kidney Stones: No Hx Psychiatric Treatment: Yes (Anxiety) Hx Asthma: Yes Hx COPD: Yes Hx Tuberculosis: No Hx Dementia: No Hx HIV: No Additional medical history: MVP, hypothyroidism. degenarative disc. elia; f ibromyalgia - Surgical History Past Surgical History?: Yes Hx Cholecystectomy: Yes Additional Surgical History: neck, Tubal ligation, - Family History Family history: no significant, other - Social History Smoking Status: Current Every Day Smoker Substance Use Type: None - Medications Home Medications: Home Medications Medication Instructions Recorded Confirmed Last Taken Type Diclofenac Sodium 50 mg PO DAILY 01/09/18 05/27/18 02/20/18 History tiZANidine [Zanaflex 4mg TAB] 1 - 2 tab PO DAILY 01/09/18 05/27/18 02/20/18 History hydrOXYzine PAMOATE [Vistaril] 50 mg PO Q12H PRN #20 capsule 02/27/18 05/27/18 Unknown Rx Ipratropium/Albuter (Nf) 2 puff IH QID PRN #1 inha 05/29/18 Unknown Rx [Combivent (Nf)] Albuterol Sulfate [Proair 90 mcg IH QID PRN #1 aer.pow.ba 11/23/18 Unknown Rx Respiclick] Fluticasone [Flonase] 1 spray NS QDAY #1 bottle 11/23/18 Unknown Rx methylPREDNISolone [Medrol 4MG 4 mg PO UNK #1 tab.ds.pk 11/23/18 Unknown Rx DOSEPAK (21 tabs)] ED Physical Exam - General Limitations: No Limitations General appearance: alert - Head Head exam: Present: normocephalic - Eye Eye exam: Present: normal appearance, PERRL - ENT ENT exam: Present: mucous membranes moist - Neck Neck exam: Present: normal inspection - Respiratory Respiratory exam: Present: normal lung sounds bilaterally, wheezes - Cardiovascular Cardiovascular Exam: Present: regular rate - GI/Abdominal GI/Abdominal exam: Present: soft, normal bowel sounds - Rectal Rectal exam: Present: deferred - Extremities Exam Extremities exam: Present: normal inspection, full ROM - Back Exam Back exam: Present: normal inspection, full ROM - Neurological Exam Neurological exam: Present: alert, oriented X3 - Psychiatric Psychiatric exam: Present: normal affect, normal mood - Skin Skin exam: Present: warm, dry, intact ED Course Vital Signs 11/23/18 11/23/18 11:03 11:54 Temperature 97.7 F Pulse Rate 82 Pulse Rate [ 79 Anterior Bilateral Throughout] Respiratory 22 Rate Respiratory 18 Rate [Anterior Bilateral Throughout] Blood Pressure 192/82 O2 Sat by Pulse 98 Oximetry - Reevaluation(s) Reevaluation #1: 11/23/18 12:27 improved with duoneb ED Medical Decision Making - Lab Data Result diagrams: 11/23/18 11:14 11/23/18 11:14 - Radiology Data Radiology results: report reviewed, image reviewed - Medical Decision Making xray noted no fever no sputum duoneb/solumedrol in ER dc home with dc plan of care and pcp follow up Vital Signs 11/23/18 11:03 Temperature 97.7 F Pulse Rate 82 Respiratory 22 Rate Blood Pressure 192/82 O2 Sat by Pulse 98 Oximetry Lab Results 11/23/18 Range/Units 11:14 WBC 5.9 (4.5-11.0) K/mm3 RBC 4.82 (3.65-5.03) M/mm3 Hgb 12.8 (10.1-14.3) gm/dl Hct 37.8 (30.3-42.9) % MCV 79 (79-97) fl MCH 27 L (28-32) pg MCHC 34 (30-34) % RDW 15.0 (13.2-15.2) % Plt Count 195 (140-440) K/mm3 Lymph % (Auto) 29.9 (13.4-35.0) % Todd % (Auto) 6.5 (0.0-7.3) % Eos % (Auto) 8.7 H (0.0-4.3) % Baso % (Auto) 1.3 (0.0-1.8) % Lymph # 1.8 (1.2-5.4) K/mm3 Todd # 0.4 (0.0-0.8) K/mm3 Eos # 0.5 H (0.0-0.4) K/mm3 Baso # 0.1 (0.0-0.1) K/mm3 Seg Neutrophils % 53.6 (40.0-70.0) % Seg Neutrophils # 3.2 (1.8-7.7) K/mm3 - Differential Diagnosis copd ae with or without infection Critical care attestation.: If time is entered above; I have spent that time in minutes in the direct care of this critically ill patient, excluding procedure time. ED Disposition Clinical Impression: Nicotine dependence, COPD with acute exacerbation Disposition: TO HOME OR SELFCARE Is pt being admited?: No Does the pt Need Aspirin: No Condition: Stable Instructions: Chronic Obstructive Pulmonary Disease (ED) Additional Instructions: continue home meds meds as ordered today follow up with pcp for recheck on Tuesday diet and activity as tolerated Prescriptions: Fluticasone [Flonase] 1 spray NS QDAY #1 bottle methylPREDNISolone [Medrol 4MG DOSEPAK (21 tabs)] 4 mg PO UNK #1 tab.ds.pk Albuterol Sulfate [Proair Respiclick] 90 mcg IH QID PRN #1 aer.pow.ba PRN Reason: Wheezing Referrals: [facility] [Outside] - 3-5 Days Time of Disposition: 11:34
[2018-11-23 11:30] LABS: Basophils # (Auto) 0.1 K/mm3 (0.0-0.1); Basophils % (Auto) 1.3 % (0.0-1.8); Eosinophils # (Auto) 0.5 K/mm3 (0.0-0.4); Eosinophils % (Auto) 8.7 % (0.0-4.3); Hematocrit 37.8 % (30.3-42.9); Hemoglobin 12.8 gm/dl (10.1-14.3); Lymphocytes # (Auto) 1.8 K/mm3 (1.2-5.4); Lymphocytes % (Auto) 29.9 % (13.4-35.0); Mean Corpuscular HGB Conc 34 % (30-34); Mean Corpuscular Volume 79 fl (79-97); Monocytes # (Auto) 0.4 K/mm3 (0.0-0.8); Monocytes % (Auto) 6.5 % (0.0-7.3); Platelet Count 195 K/mm3 (140-440); Red Blood Count 4.82 M/mm3 (3.65-5.03)
[2018-11-23] MEDS ORDERED: SOLU-Medrol IM ONE (11:46)
--- NOTE | 2018-11-23 11:46 | XRay Report ---
CHEST 2 VIEWS INDICATION: sob. COMPARISON: 05/27/2018 FINDINGS: Support devices: None. Heart: Within normal limits. Pulmonary vasculature: Large central pulmonary arteries but otherwise normal vasculature. Lungs/pleura: Lungs are hyperexpanded and hyperlucent. No airspace disease or pleural effusion. No p neumothorax. Additional findings: None. IMPRESSION: COPD and no acute cardiopulmonary process. Signer Name: Dion Esteban MD Signed: 11/23/2018 11:41 AM Workstation Name: [id number]
[2018-11-23 11:54] LABS: Alanine Aminotransferase 27 units/L (7-56); Albumin 4.1 g/dL (3.9-5); BUN/Creatinine Ratio 11; Blood Urea Nitrogen 10 mg/dL (7-17); Calcium 9.1 mg/dL (8.4-10.2); Hemolysis Index 3
[2018-11-23 14:07] VITALS: BP 142/71
== END 2018-11-23 12:50 | disposition home or self-care (01) ==
LOC: ED 10:55
DX: J44.1 Chronic obstructive pulmonary disease with (acute) exacerbation (principal); F17.200 Nicotine dependence, unspecified, uncomplicated; I10 Essential (primary) hypertension; F41.9 Anxiety disorder, unspecified; E03.9 Hypothyroidism, unspecified; M79.7 Fibromyalgia; Z90.49 Acquired absence of other specified parts of digestive tract; Z88.5 Allergy status to narcotic agent; Z79.899 Other long term (current) drug therapy
CPT/HCPCS: 36415; 71046; 80053; 85025; 94640; 96372; 99284; J2930; 94644

== ENCOUNTER 2019-03-09 08:53 | Observation (INO) | payer MEDICARE ==
--- NOTE | 2019-03-09 10:12 | XRay Report ---
CHEST 1 VIEW 03/09/2019 10:06 AM INDICATION / CLINICAL INFORMATION: Chest Pain. Additional history: Cough and fever for one week. COMPARISON: 2 views of the chest from 11/23/2018. FINDINGS: SUPPORT DEVICES: None. HEART / MEDIASTINUM: No significant abnormality. LUNGS / PLEURA: No significant pulmonary or pleural abnormality. No pneumothorax. ADDITIONAL FINDINGS: No significant additional findings. IMPRESSION: 1. No acute abnormality of the chest. Signer Name: Justin Frias MD Signed: 03/09/2019 10:08 AM Workstation Name: [id number]
[2019-03-09 10:15] LABS: Basophils # (Auto) 0.1 K/mm3 (0.0-0.1); Basophils % (Auto) 0.9 % (0.0-1.8); Eosinophils # (Auto) 0.2 K/mm3 (0.0-0.4); Eosinophils % (Auto) 3.2 % (0.0-4.3); Hematocrit 41.4 % (30.3-42.9); Hemoglobin 13.6 gm/dl (10.1-14.3); Lymphocytes # (Auto) 2.3 K/mm3 (1.2-5.4); Lymphocytes % (Auto) 30.3 % (13.4-35.0); Mean Corpuscular HGB Conc 33 % (30-34); Mean Corpuscular Volume 79 fl (79-97); Monocytes # (Auto) 0.6 K/mm3 (0.0-0.8); Monocytes % (Auto) 7.6 % (0.0-7.3); Platelet Count 162 K/mm3 (140-440); Red Blood Count 5.25 M/mm3 (3.65-5.03); Red Cell Distribution Width 14.2 % (13.2-15.2)
[2019-03-09 10:36] LABS: BUN/Creatinine Ratio 18; Blood Urea Nitrogen 23 mg/dL (7-17); Calcium 9.2 mg/dL (8.4-10.2); Hemolysis Index 22
[2019-03-09] MEDS ORDERED: ALBUTEROL 2.5 MG/3 ML NEBU IH ONE (10:42)
[2019-03-09] MEDS ORDERED: IPRATROPIUM 0.02% NEBU 2.5 ML IH ONE (10:42)
--- NOTE | 2019-03-09 10:57 | Emergency Department Report ---
HPI - General Chief Complaint: Dyspnea/Respdistress Time Seen by Provider: 03/09/19 10:31 - HPI HPI: Room 36 The patient is a 54-year-old female presenting with a chief complaint of shortness of breath and URI symptoms. The patient states she saw her primary physician on 2019 secondary to cold chills shortness of breath and a cough productive of green brown sputum. Patient states she was diagnosed with an upper respiratory tract infection and sinusitis given a prescription for Augmentin and Flonase. The patient states she completed the course of antibiotics for her symptoms have not changed. Patient complains of fatigue, rhinorrhea shortness of breath and cough. The patient has a history of COPD but is not on oxygen at home Location: [See above] Duration: [See above] Quality: [See above] Severity: [See above] Timing: [See above] Context: [See above] Modifying factors: [See above] Associated signs and symptoms: [see above] ED Past Medical Hx - Past Medical History Hx Hypertension: Yes Hx Psychiatric Treatment: Yes (Anxiety) Hx Asthma: Yes Hx COPD: Yes Additional medical history: MVP, hypothyroidism. degenarative disc. elia; fibromyalgia - Surgical History Hx Cholecystectomy: Yes Additional Surgical History: neck, Tubal ligation, - Family History Family history: no significant - Social History Smoking Status: Current Every Day Smoker (1/7 pack per day) Substance Use Type: None - Medications Home Medications: Home Medications Medication Instructions Recorded Confirmed Last Taken Type Diclofenac Sodium 50 mg PO DAILY 01/09/18 05/27/18 02/20/18 History tiZANidine [Zanaflex 4mg TAB] 1 - 2 tab PO DAILY 01/09/18 05/27/18 02/20/18 History hydrOXYzine PAMOATE [Vistaril] 50 mg PO Q12H PRN #20 capsule 02/27/18 05/27/18 Unknown Rx Ipratropium/Albuter (Nf) 2 puff IH QID PRN #1 inha 05/29/18 Unknown Rx [Combivent (Nf)] Albuterol Sulfate [Proair 90 mcg IH QID PRN #1 aer.pow.ba 11/23/18 Unknown Rx Respiclick] Fluticasone [Flonase] 1 spray NS QDAY #1 bottle 11/23/18 Unknown Rx methylPREDNISolone [Medrol 4MG 4 mg PO UNK #1 tab.ds.pk 11/23/18 Unknown Rx DOSEPAK (21 tabs)] ED Review of Systems ROS: Stated complaint: LUNGS HURTING/HEADACHE/FILOMENA Other details as noted in HPI Constitutional: chills Eyes: denies: eye pain ENT: throat pain Respiratory: cough, shortness of breath Cardiovascular: denies: chest pain Endocrine: no symptoms reported Gastrointestinal: nausea Genitourinary: denies: dysuria Musculoskeletal: myalgia Neurological: denies: headache Physical Exam - Physical Exam Vital Signs: Vital Signs 03/09/19 09:00 Temperature 98.1 F Pulse Rate 63 Respiratory 22 Rate Blood Pressure 121/56 O2 Sat by Pulse 91 Oximetry Physical Exam: GENERAL: The patient is well-developed well-nourished female lying on stretcher coughing occasionally. Be in acute distress. [] HEENT: Normocephalic. Atraumatic. Extraocular motions are intact. Patient has moist mucous Neck: No stridor CHEST/LUNGS: Faint expiratory wheezing. There is no respiratory distress noted. HEART/CARDIOVASCULAR: Regular. There is no tachycardia. There is no gallop rub or murmur. ABDOMEN: Abdomen is soft, nontender. Patient has normal bowel sounds. There is no abdominal distention. SKIN: There is no rash. There is no edema. There is no diaphoresis. NEURO: The patient is awake, alert, and oriented. The patient is cooperative. The patient has normal speech MUSCULOSKELETAL: There is no evidence of acute injury. ED Course Vital Signs 03/09/19 09:00 Temperature 98.1 F Pulse Rate 63 Respiratory 22 Rate Blood Pressure 121/56 O2 Sat by Pulse 91 Oximetry ED Medical Decision Making - Lab Data Result diagrams: 03/09/19 09:31 03/09/19 09:31 Laboratory Tests 03/09/19 03/09/19 03/09/19 09:31 09:31 09:31 WBC 7.7 RBC 5.25 H Hgb 13.6 Hct 41.4 MCV 79 MCH 26 L MCHC 33 RDW 14.2 Plt Count 162 Lymph % (Auto) 30.3 [place] % (Auto) 7.6 H Eos % (Auto) 3.2 Baso % (Auto) 0.9 Lymph # 2.3 [place] # 0.6 Eos # 0.2 Baso # 0.1 Seg Neutrophils % 58.0 Seg Neutrophils # 4.5 ABG pH ABG pCO2 ABG pO2 ABG HCO3 ABG O2 Saturation ABG O2 Content ABG Base Excess ABG Hemoglobin ABG Carboxyhemoglobin ABG Methemoglobin Oxyhemoglobin FiO2 Sodium 143 Potassium 4.2 Chloride 98.4 Carbon Dioxide 25 Anion Gap 24 BUN 23 H Creatinine 1.3 H Estimated GFR 42 BUN/Creatinine Ratio 18 Glucose 125 H Calcium 9.2 Troponin T < 0.010 HCG, Qual Negative Influenza A (Rapid) Influenza B (Rapid) 03/09/19 03/09/19 11:00 Unknown WBC RBC Hgb Hct MCV MCH MCHC RDW Plt Count Lymph % (Auto) [place] % (Auto) Eos % (Auto) Baso % (Auto) Lymph # [place] # Eos # Baso # Seg Neutrophils % Seg Neutrophils # ABG pH 7.480 H ABG pCO2 38.1 ABG pO2 75.6 L ABG HCO3 27.7 H ABG O2 Saturation 96.7 ABG O2 Content 18.0 ABG Base Excess 4.1 H ABG Hemoglobin 13.7 ABG Carboxyhemoglobin 2.8 ABG Methemoglobin 0.6 Oxyhemoglobin 93.4 L FiO2 21 Sodium Potassium Chloride Carbon Dioxide Anion Gap BUN Creatinine Estimated GFR BUN/Creatinine Ratio Glucose Calcium Troponin T HCG, Qual Influenza A (Rapid) Negative Influenza B (Rapid) Negative - EKG Data -: EKG Interpreted by Me EKG shows normal: sinus rhythm Rate: normal - EKG Data When compared to previous EKG there are: previous EKG unavailable Interpretation: nonspecific ST-T wave rajan (T-wave inversion in lead aVL and V2) - Radiology Data Radiology results: report reviewed (chest x-ray), image reviewed (chest x-ray) interpreted by me: Chest x-ray-no focal infiltrates, no pneumothorax [facility] [address] [place] [address] XRay Report Signed Patient: MANISHA ORTEZ MR#: [id number] : 1965 Acct:[id number] Age/Sex: 54 / F ADM Date: 03/09/19 Loc: ED Attending Dr: Ordering Physician: ED MD JOSIAH Date of Service: 03/09/19 Procedure(s): XR chest 1V ap Accession Number(s): [id number] cc: ED DOCMD Fluoro Time In Minutes: CHEST 1 VIEW 03/09/2019 10:06 AM INDICATION / CLINICAL INFORMATION: Chest Pain. Additional history: Cough and fever for one week. COMPARISON: 2 views of the chest from 11/23/2018. FINDINGS: SUPPORT DEVICES: None. HEART / MEDIASTINUM: No significant abnormality. LUNGS / PLEURA: No significant pulmonary or pleural abnormality. No pneumo thorax. ADDITIONAL FINDINGS: No significant additional findings. IMPRESSION: 1. No acute abnormality of the chest. Signer Name: Justin Frias MD Signed: 03/09/2019 10:08 AM Workstation Name: [id number] Transcribed By: ARNALDO Dictated By: Justin Frias MD Electronically Authenticated By: Justin Frias MD Signed Date/Time: 03/09/19 1008 DD/ 1006 TD/TT: - Differential Diagnosis COPD exacerbation, bronchitis, pneumonia Critical care attestation.: If time is entered above; I have spent that time in minutes in the direct care of this critically ill patient, excluding procedure time. ED Disposition Clinical Impression: Hypoxia, COPD exacerbation Disposition: DC-09 OP ADMIT IP TO THIS HOSP Is pt being admited?: Yes Does the pt Need Aspirin: No Condition: Fair Instructions: Chronic Obstructive Pulmonary Disease (ED) Time of Disposition: 11:27 (hospitalist paged (Dr Garza))
[2019-03-09 11:20] LABS: ABG Base Excess 4.1 mmol/L (-2.0-3.0); ABG HCO3 27.7 mmol/L (20.0-26.0); ABG Methemoglobin 0.6 % (0.0-1.5); ABG Oxygen Saturation 96.7 % (95.0-99.0); ABG PCO2 38.1 mm Hg; ABG PH 7.48 pH Units (7.350-7.450); ABG PO2 75.6 mm Hg (80.0-90.0)
[2019-03-09] MEDS ORDERED: HYDROcodone/ACETAMINOPHEN 5-325 MG TAB PO ONE (12:11)
[2019-03-09] MEDS ORDERED: HYDROcodone/ACETAMINOPHEN 5-325 MG TAB ONE (12:18)
[2019-03-09] MEDS ORDERED: HYDROmorphone 1 MG/1 ML INJ ONE (12:38)
[2019-03-09] MEDS: HYDROmorphone 1 MG/1 ML INJ IV PRN ×2 (13:20→18:36)
[2019-03-09] MEDS ORDERED: LIP THERAPY VASELINE TP PRN (15:00)
[2019-03-09] MEDS: guaiFENesin/CODEINE 100-10MG ORAL LIQD 5 ML PO PRN ×2 (15:12→22:13)
[2019-03-09] MEDS ORDERED: ONDANSETRON 4 MG/2 ML INJ IV PRN ×2 (18:42→22:33)
--- NOTE | 2019-03-09 22:30 | Event Note ---
Date: 03/09/19 See history and physical in the reports Acute respiratory failure COPD exacerbation
[2019-03-09] MEDS ORDERED: ACETAMINOPHEN 325 MG TAB PO PRN (22:33)
[2019-03-09] MEDS ORDERED: METOCLOPRAMIDE 10 MG/2 ML INJ IV PRN (22:33)
[2019-03-09] MEDS ORDERED: HYDROmorphone 1 MG/1 ML INJ IV PRN (22:33)
[2019-03-09] MEDS ORDERED: IPRATROPIUM/ALBUTEROL SULFATE 3 ML AMPUL.NEB IH PRN (22:36)
[2019-03-09] MEDS ORDERED: BUPRENORPHINE HCL 150 MCG BC SCH (22:45)
[2019-03-09] MEDS ORDERED: DICLOFENAC SODIUM 50 MG PO SCH (22:45)
[2019-03-09] MEDS ORDERED: ALBUTEROL 2.5 MG/3 ML NEBU IH PRN (22:50)
[2019-03-09] MEDS: DICLOFENAC EC 25 MG TAB PO SCH (23:14)
[2019-03-09] MEDS: methylPREDNISolone Sod Succinate 125 MG/2 ML INJ IV SCH (23:16)
[2019-03-10 05:03] LABS: Basophils % (Auto) 0.3 % (0.0-1.8); Eosinophils % (Auto) 0.4 % (0.0-4.3); Hematocrit 38.5 % (30.3-42.9); Hemoglobin 13.1 gm/dl (10.1-14.3); Lymphocytes # (Auto) 1.2 K/mm3 (1.2-5.4); Lymphocytes % (Auto) 20.4 % (13.4-35.0); Mean Corpuscular HGB Conc 34 % (30-34); Mean Corpuscular Volume 76 fl (79-97); Monocytes # (Auto) 0.1 K/mm3 (0.0-0.8); Monocytes % (Auto) 2.4 % (0.0-7.3); Platelet Count 156 K/mm3 (140-440); Red Blood Count 5.04 M/mm3 (3.65-5.03); Red Cell Distribution Width 14.2 % (13.2-15.2)
[2019-03-10 05:28] LABS: Albumin 4.3 g/dL (3.9-5); Calcium 9.4 mg/dL (8.4-10.2)
[2019-03-10] MEDS: methylPREDNISolone Sod Succinate 125 MG/2 ML INJ IV SCH ×3 (06:21→22:08)
[2019-03-10] MEDS: guaiFENesin/CODEINE 100-10MG ORAL LIQD 5 ML PO PRN ×3 (06:26→22:08)
[2019-03-10] MEDS: oxyCODONE /ACETAMINOPHEN 5-325MG TAB PO PRN ×3 (06:26→22:06)
[2019-03-10] MEDS: IPRATROPIUM/ALBUTEROL SULFATE 3 ML AMPUL.NEB IH SCH ×3 (08:23→20:23)
[2019-03-10] MEDS: tiZANidine TAB 4 MG TAB PO SCH ×2 (09:58→22:06)
[2019-03-10] MEDS: FAMOTIDINE 20 MG TAB PO SCH ×2 (09:58→22:06)
[2019-03-10] MEDS: hydrALAZINE 25 MG TAB PO SCH (10:00)
[2019-03-10] MEDS: LISINOPRIL 40 MG TAB PO SCH (10:01)
[2019-03-10] MEDS: DICLOFENAC EC 25 MG TAB PO SCH ×2 (10:13→22:48)
[2019-03-10] MEDS ORDERED: ALBUTEROL 2.5 MG/3 ML NEBU IH PRN (13:38)
--- NOTE | 2019-03-10 15:43 | History and Physical Report ---
CHIEF COMPLAINT: Increasing shortness of breath. HISTORY OF PRESENT ILLNESS: A 54-year-old female with history of COPD, comes in for increasing shortness of breath and cough productive of mucoid sputum for the last 3-4 days. Getting increasingly short of breath and not responding to oral antibiotics. The patient was given a prescription of Augmentin and Flonase. Cough productive of mucoid to brown sputum, sometimes greenish sputum. No fever or chills. Not on oxygen at home. No exacerbating or relieving factors. Not responding to bronchodilators. PAST MEDICAL HISTORY: Significant for hypertension, anxiety disorder, COPD, asthma, hypothyroidism, degenerative disk disease, obstructive sleep apnea, fibromyalgia, mitral valve prolapse. PAST SURGICAL HISTORY: Cholecystectomy, neck surgery and tubal ligation. FAMILY HISTORY: Hypertension. SOCIAL HISTORY: Smokes about half a pack a day. CURRENT MEDICATIONS: On the chart. REVIEW OF SYSTEMS: Significant for increasing shortness of breath and wheezing. Not responding to outpatient treatment. Otherwise, review of systems negative. PHYSICAL EXAMINATION: GENERAL: Late middle-aged female, cooperative during examination. VITAL SIGNS: Blood pressure is 121/56, ____, respiratory rate is 22. HEENT: Unremarkable. Pupils equal and reactive. NECK: Supple. Accessory muscles of respiration are prominent. CHEST AND LUNGS: Bilateral inspiratory and expiratory rhonchi present. Chest tightness and diminished air entry present. No costochondral tenderness. CARDIOVASCULAR: S1, S2 heard. No gallop, no murmur, no rub. Apical impulse in left fifth intercostal space and midclavicular line. ABDOMEN: Soft and benign. No hepatosplenomegaly. No guarding, no rigidity. Hernial orifices are normal. EXTREMITIES: Good pedal pulses. No pedal edema. CENTRAL NERVOUS SYSTEM: Alert and oriented x 4, nonfocal exam. SKIN: Normal. LABORATORY DATA: Significant for normal CBC. ABG significant for pH of 7.48, pCO2 of 38, pO2 of 75, bicarbonate of 27.7, hemoglobin of 13.7, oxyhemoglobin 93.4, FiO2 21%. BUN and creatinine is 23 and 1.3. Influenza screen is negative. DIAGNOSTIC DATA: Chest x-ray shows no acute findings. EKG shows heart rate of ____ per minute, LVH criteria present. No acute ST-T wave changes. ASSESSMENT AND PLAN: 1. Acute respiratory failure. The patient was started on DuoNeb, IV Solu-Medrol, and IV Levaquin. 2. Chronic obstructive pulmonary disease exacerbation. Same as above. DuoNeb, Solu-Medrol and IV Levaquin. 3. Hypertension. Continue hydralazine and lisinopril. 4. Muscle spasms. Continue Zanaflex. 5. Chronic pain. The patient on buprenorphine. 6. Deep venous thrombosis prophylaxis, heparin 5000 q. 12. In summary, the patient has acute respiratory failure, chronic obstructive pulmonary disease exacerbation, hypertension, chronic pain and muscle spasms. JOB# [id number] LILLIAN/NTS
[2019-03-10] MEDS: HEPARIN 5,000 UNIT/1 ML VIAL SUB-Q SCH ×2 (19:40→22:08)
[2019-03-10] MEDS: BUDESONIDE 0.5 MG/2 ML NEBU IH SCH (20:23)
[2019-03-10] MEDS: ARFORMOTEROL 15 MCG/2 ML NEBU IH SCH (20:23)
[2019-03-11] MEDS: methylPREDNISolone Sod Succinate 125 MG/2 ML INJ IV SCH ×3 (06:18→22:02)
[2019-03-11] MEDS: guaiFENesin/CODEINE 100-10MG ORAL LIQD 5 ML PO PRN ×2 (06:31→22:10)
[2019-03-11] MEDS: oxyCODONE /ACETAMINOPHEN 5-325MG TAB PO PRN ×2 (06:31→15:08)
[2019-03-11] MEDS: BUDESONIDE 0.5 MG/2 ML NEBU IH SCH ×2 (08:38→21:10)
[2019-03-11] MEDS: ARFORMOTEROL 15 MCG/2 ML NEBU IH SCH ×2 (08:38→21:10)
[2019-03-11] MEDS: IPRATROPIUM/ALBUTEROL SULFATE 3 ML AMPUL.NEB IH SCH ×3 (08:39→21:10)
[2019-03-11] MEDS: tiZANidine TAB 4 MG TAB PO SCH ×2 (10:44→22:03)
[2019-03-11] MEDS: FAMOTIDINE 20 MG TAB PO SCH ×2 (10:44→22:03)
[2019-03-11] MEDS: DICLOFENAC EC 25 MG TAB PO SCH ×2 (10:45→22:08)
[2019-03-11] MEDS: HEPARIN 5,000 UNIT/1 ML VIAL SUB-Q SCH ×2 (10:47→22:04)
[2019-03-11] MEDS: LISINOPRIL 40 MG TAB PO SCH (10:50)
[2019-03-11] MEDS: hydrALAZINE 25 MG TAB PO SCH (10:50)
[2019-03-12] MEDS: oxyCODONE /ACETAMINOPHEN 5-325MG TAB PO PRN ×3 (00:08→12:41)
--- NOTE | 2019-03-12 04:52 | Progress Note ---
Assessment and Plan - Patient Problems (1) Acute respiratory failure with hypoxia Current Visit: Yes Status: Acute Plan to address problem: Patient has O2 sats in low 90's and tachypneic.O2 Sat of 91. PO2 of 75.6 on ABG IV Solumedrol IV levaquin and Duonebs RTC and PRN initiated (2) COPD exacerbation Current Visit: Yes Status: Acute Plan to address problem: Patient has O2 sats in low 90's and tachypneic.O2 Sat of 91. PO2 of 75.6 on ABG IV Solumedrol IV levaquin and Duonebs RTC and PRN initiated (3) Nicotine dependence Current Visit: No Status: Chronic Qualifiers: Nicotine product type: cigarettes Substance use status: unspecified nicotine-induced disorder Qualified Code(s): F17.219 - Nicotine dependence, cigarettes, with unspecified nicotine-induced disorders Plan to address problem: Counselled and nicoderm patch initiated (4) HTN (hypertension) Current Visit: No Status: Chronic Qualifiers: Hypertension type: essential hypertension Qualified Code(s): I10 - Essential (primary) hypertension Plan to address problem: COnt antihypertensives.Monitor BP and adjust meds as necessary (5) Chronic pain Current Visit: Yes Status: Chronic Qualifiers: Chronic pain type: chronic pain syndrome Qualified Code(s): G89.4 - Chronic pain syndrome Plan to address problem: Cont Belbuca oral patch (6) DVT prophylaxis Current Visit: No Status: Acute Plan to address problem: on Heparin and Gi prophylaxis Subjective Date of service: 03/10/19 Principal diagnosis: Acute resp failure and Copd exacerbation Interval history: 54-year-old female presenting with a chief complaint of shortness of breath and URI symptoms. The patient states she saw her primary physician on 01 Mar 2019 secondary to cold chills shortness of breath and a cough productive of green brown sputum. Patient states she was diagnosed with an upper respiratory tract infection and sinusitis.Was given a prescription for Augmentin and Flonase. The patient states she completed the course of antibiotics.But tiffany symptoms have not changed. Patient complains of fatigue, rhinorrhea shortness of breath and cough. The patient has a history of COPD but is not on oxygen at home.Cough productive of yellow sputum.Also wheezing.No recent travel. No interval improvement Objective - Constitutional Vitals: Vital Signs - 12hr 03/11/19 03/11/19 03/11/19 20:00 21:12 21:13 Temperature Pulse Rate Pulse Rate [ 63 Anterior Bilateral Throughout] Respiratory 18 Rate Respiratory 20 Rate [Anterior Bilateral Throughout] Respiratory Rate [ generalized] Blood Pressure O2 Sat by Pulse 95 Oximetry 03/11/19 03/11/19 03/11/19 21:47 22:00 22:08 Temperature 98.7 F Pulse Rate 66 Pulse Rate [ Anterior Bilateral Throughout] Respiratory 16 18 Rate Respiratory Rate [Anterior Bilateral Throughout] Respiratory 18 Rate [ generalized] Blood Pressure 97/41 O2 Sat by Pulse 93 Oximetry 03/11/19 03/12/19 03/12/19 23:08 00:08 01:08 Temperature Pulse Rate Pulse Rate [ Anterior Bilateral Throughout] Respiratory 18 18 16 Rate Respiratory Rate [Anterior Bilateral Throughout] Respiratory Rate [ generalized] Blood Pressure O2 Sat by Pulse Oximetry General appearance: Present: mild distress, well-nourished - EENT Eyes: PERRL, EOM intact ENT: hearing intact, clear oral mucosa Ears: bilateral: normal - Neck Neck: supple, normal ROM - Respiratory Respiratory effort: normal Respiratory: bilateral: rhonchi, wheezing - Breasts Breasts: normal - Cardiovascular Rhythm: regular Heart Sounds: Present: S1 & S2. Absent: gallop, rub Extremities: pulses intact, No edema, normal color, Full ROM - Gastrointestinal General gastrointestinal: Present: soft, non-tender, non-distended, normal bowel sounds Rectal Exam: deferred - Genitourinary Female genitourinary: normal - Integumentary Integumentary: clear, warm, dry - Musculoskeletal Musculoskeletal: 1, strength equal bilaterally - Neurologic Neurologic: moves all extremities - Psychiatric Psychiatric: memory intact, appropriate mood/affect, intact judgment & insight - Allied health notes Allied health notes reviewed: nursing, case management - Labs CBC & Chem 7: 03/10/19 04:28 03/10/19 04:28 Labs: Abnormal lab results 03/11/19 Range/Units 12:22 POC Glucose 225 H (70-105)
--- NOTE | 2019-03-12 05:10 | Progress Note ---
Assessment and Plan - Patient Problems (1) Acute respiratory failure with hypoxia Current Visit: Yes Status: Acute Plan to address problem: Patient has O2 sats in low 90's and tachypneic.O2 Sat of 91. PO2 of 75.6 on ABG IV Solumedrol IV levaquin and Duonebs RTC and PRN initiated (2) COPD exacerbation Current Visit: Yes Status: Acute Plan to address problem: Patient has O2 sats in low 90's and tachypneic.O2 Sat of 91. PO2 of 75.6 on ABG IV Solumedrol IV levaquin and Duonebs RTC and PRN initiated (3) HTN (hypertension) Current Visit: No Status: Chronic Qualifiers: Hypertension type: essential hypertension Qualified Code(s): I10 - Essential (primary) hypertension (4) Chronic pain Current Visit: Yes Status: Chronic Qualifiers: Chronic pain type: chronic pain syndrome Qualified Code(s): G89.4 - Chronic pain syndrome Plan to address problem: Cont Belbuca oral patch (5) Nicotine dependence Current Visit: No Status: Chronic Qualifiers: Nicotine product type: cigarettes Substance use status: unspecified nicotine-induced disorder Qualified Code(s): F17.219 - Nicotine dependence, cigarettes, with unspecified nicotine-induced disorders Plan to address problem: Counselled and nicoderm patch initiated (6) DVT prophylaxis Current Visit: No Status: Acute Plan to address problem: on Heparin and Gi prophylaxis (7) Discharge planning issues Current Visit: Yes Status: Acute Plan to address problem: patient may need another 24 to 48 hrs of treatment .Changed to inpatient status. Subjective Date of service: 03/11/19 Principal diagnosis: Acute resp failure and Copd exacerbation Interval history: 54-year-old female presenting with a chief complaint of shortness of breath and URI symptoms. The patient states she saw her primary physician on 01 Mar 2019 secondary to cold chills shortness of breath and a cough productive of green brown sputum. Patient states she was diagnosed with an upper respiratory tract infection and sinusitis.Was given a prescription for Augmentin and Flonase. The patient states she completed the course of antibiotics.But tiffany symptoms have not changed. Patient complains of fatigue, rhinorrhea shortness of breath and cough. The patient has a history of COPD but is not on oxygen at home.Cough productive of yellow sputum.Also wheezing.No recent travel. NSome interval improvement.Still wheezing and cough productive of Yellow sputum Objective - Constitutional Vitals: Vital Signs - 12hr 03/11/19 03/11/19 03/11/19 20:00 21:12 21:13 Temperature Pulse Rate Pulse Rate [ 63 Anterior Bilateral Throughout] Respiratory 18 Rate Respiratory 20 Rate [Anterior Bilateral Throughout] Respiratory Rate [ generalized] Blood Pressure O2 Sat by Pulse 95 Oximetry 03/11/19 03/11/19 03/11/19 21:47 22:00 22:08 Temperature 98.7 F Pulse Rate 66 Pulse Rate [ Anterior Bilateral Throughout] Respiratory 16 18 Rate Respiratory Rate [Anterior Bilateral Throughout] Respiratory 18 Rate [ generalized] Blood Pressure 97/41 O2 Sat by Pulse 93 Oximetry 03/11/19 03/12/19 03/12/19 23:08 00:08 01:08 Temperature Pulse Rate Pulse Rate [ Anterior Bilateral Throughout] Respiratory 18 18 16 Rate Respiratory Rate [Anterior Bilateral Throughout] Respiratory Rate [ generalized] Blood Pressure O2 Sat by Pulse Oximetry General appearance: Present: mild distress, well-nourished - EENT Eyes: PERRL, EOM intact ENT: hearing intact, clear oral mucosa Ears: bilateral: normal - Neck Neck: supple, normal ROM - Respiratory Respiratory effort: normal Respiratory: bilateral: CTA - Breasts Breasts: normal - Cardiovascular Heart rate: 78 Rhythm: regular Heart Sounds: Present: S1 & S2. Absent: gallop, rub Extremities: pulses intact, No edema, normal color, Full ROM - Gastrointestinal General gastrointestinal: Present: soft, non-tender, non-distended, normal bowel sounds Rectal Exam: deferred - Genitourinary Female genitourinary: normal - Integumentary Integumentary: clear, warm, dry - Musculoskeletal Musculoskeletal: 1, strength equal bilaterally - Neurologic Neurologic: moves all extremities - Psychiatric Psychiatric: memory intact, appropriate mood/affect, intact judgment & insight - Labs CBC & Chem 7: 03/10/19 04:28 03/10/19 04:28 Labs: Abnormal lab results 03/11/19 Range/Units 12:22 POC Glucose 225 H (70-105)
[2019-03-12] MEDS: methylPREDNISolone Sod Succinate 125 MG/2 ML INJ IV SCH (05:13)
[2019-03-12] MEDS: guaiFENesin/CODEINE 100-10MG ORAL LIQD 5 ML PO PRN ×2 (06:24→11:45)
[2019-03-12] MEDS ORDERED: NICOTINE 14 MG/24 HR PATCH TD SCH (07:00)
[2019-03-12] MEDS: FAMOTIDINE 20 MG TAB PO SCH (09:51)
[2019-03-12] MEDS: tiZANidine TAB 4 MG TAB PO SCH (09:52)
[2019-03-12] MEDS: BUDESONIDE 0.5 MG/2 ML NEBU IH SCH (09:53)
[2019-03-12] MEDS: ARFORMOTEROL 15 MCG/2 ML NEBU IH SCH (09:54)
[2019-03-12] MEDS: HEPARIN 5,000 UNIT/1 ML VIAL SUB-Q SCH (09:54)
[2019-03-12] MEDS: IPRATROPIUM/ALBUTEROL SULFATE 3 ML AMPUL.NEB IH SCH ×2 (09:54→14:12)
[2019-03-12] MEDS: DICLOFENAC EC 25 MG TAB PO SCH (10:01)
[2019-03-12] MEDS: hydrALAZINE 25 MG TAB PO SCH (12:14)
[2019-03-12] MEDS: LISINOPRIL 40 MG TAB PO SCH (12:15)
[2019-03-12 12:22] VITALS: BP 100/44
--- NOTE | 2019-03-12 12:45 | Discharge Summary ---
Providers - Providers Date of Admission: 03/09/19 11:29 Attending physician: AMI BHAGAT MD Primary care physician: MARITZA MARIANO Hospitalization Condition: Stable Disposition: DC-01 TO HOME OR SELFCARE Exam - Constitutional Vitals: Temp Pulse Resp BP Pulse Ox 97.4 F L 71 18 100/44 97 03/12/19 11:23 03/12/19 12:15 03/12/19 11:23 03/12/19 12:15 03/12/19 11:23 Plan Activity: advance as tolerated, fall precautions Diet: low fat Special Instructions: record daily weights, record daily BP diary, smoking cessation, other (stay hydrated and rest) Follow up with: MARITZA MARIANO MD [Primary Care Provider] - 7 Days GITA CHAVIRA MD [Staff Physician] - 7 Days Prescriptions: Buprenorphine HCl [Belbuca] 150 mcg BC BID #6 film Diclofenac Sodium 50 mg PO BID #6 tablet.dr levoFLOXacin [Levaquin] 750 mg PO QDAY #7 tablet methylPREDNISolone [Medrol 4MG DOSEPAK (21 tabs)] 4 mg PO . DIR #1 tab.ds.pk guaiFENesin/DEXTROMETHORPHAN [Robafen Dm Cgh-Chest Luisito Liq] 118 ml PO BID #100 ml Ipratropium/Albuterol Sulfate [DUONEB *Not for PRN Use*] 1 ampul IH TIDRT #120 ampul.neb
== END 2019-03-12 14:00 | disposition home or self-care (01) ==
LOC: ED 08:53 → 3A 11:29
PROVIDERS: ADMIT Internal Medicine; ATTEND Internal Medicine
DX: J96.01 Acute respiratory failure with hypoxia (principal); J44.1 Chronic obstructive pulmonary disease with (acute) exacerbation; M62.838 Other muscle spasm; I10 Essential (primary) hypertension; G89.29 Other chronic pain; F41.9 Anxiety disorder, unspecified; E03.9 Hypothyroidism, unspecified; G47.33 Obstructive sleep apnea (adult) (pediatric); M79.7 Fibromyalgia; F17.210 Nicotine dependence, cigarettes, uncomplicated; Z98.51 Tubal ligation status; Z90.49 Acquired absence of other specified parts of digestive tract; Z79.51 Long term (current) use of inhaled steroids; Z79.899 Other long term (current) drug therapy
CPT/HCPCS: 36415; 71045; 80048; 80053; 82803; 82962; 83036; 84484; 84703; 85025; 87400; 93005; 93010; 94640; 94644; 94760; 96365; 96366; 96372; 96375; 96376; 99284; G0378; J1170; J1644; J1956; J2405; J2930

== ENCOUNTER 2020-07-16 11:48 | Emergency (ER) | payer MEDICARE ==
--- NOTE | 2020-07-16 12:28 | Emergency Department Report ---
ED General Adult HPI - General Chief complaint: Extremity Injury, Lower Stated complaint: RIGHT FOOT INJURY Time Seen by Provider: 07/16/20 12:27 Source: patient Mode of arrival: Ambulatory Limitations: No Limitations - History of Present Illness Initial comments: 55-year-old female patient presents with complaints of right foot pain starting last night. Patient states she dropped a architecture department chair on her foot. Pain is mostly over the large toe and medial portion of the foot. She denies any numbness or skin changes. She rates her pain as a 5/10 in severity and states it worsens with ambulation. Ibuprofen does improve pain per patient. -: Sudden - Related Data Home Medications Medication Instructions Recorded Confirmed Last Taken tiZANidine [Zanaflex 4mg TAB] 1 - 2 tab PO DAILY 01/09/18 03/09/19 02/20/18 hydrALAZINE [Apresoline TAB] 25 mg PO QDAY 03/09/19 03/09/19 Unknown lisinopriL [Zestril TAB] 40 mg PO QDAY 03/09/19 03/09/19 Unknown Naloxegol Oxalate [Movantik] 25 mg PO DAILY 03/10/19 03/10/19 03/07/19 25 mg Previous Rx's Medication Instructions Recorded Last Taken Type Buprenorphine HCl [Belbuca] 150 mcg BC BID #6 film 03/12/19 Unknown Rx Diclofenac Sodium 50 mg PO BID #6 tablet. 03/12/19 Unknown Rx Ipratropium/Albuterol Sulfate 1 ampul IH TIDRT #120 ampul.neb 03/12/19 Unknown Rx [DUONEB *Not for PRN Use*] guaiFENesin/DEXTROMETHORPHAN 118 ml PO BID #100 ml 03/12/19 Unknown Rx [Robafen Dm Cgh-Chest Luisito Liq] levoFLOXacin [Levaquin] 750 mg PO QDAY #7 tablet 03/12/19 Unknown Rx methylPREDNISolone [Medrol 4MG 4 mg PO . DIR #1 tab.ds.pk 03/12/19 Unknown Rx DOSEPAK (21 tabs)] Naproxen 500 mg PO BID PRN #20 tablet 07/16/20 Unknown Rx Allergies Allergy/AdvReac Type Severity Reaction Status Date / Time ibuprofen [From Motrin] Allergy Diarrhea Verified 05/27/18 16:02 ED Review of Systems ROS: Stated complaint: RIGHT FOOT INJURY Other details as noted in HPI Musculoskeletal: arthralgia Skin: denies: change in color Neurological: denies: numbness, paresthesias ED Past Medical Hx - Past Medical History Hx Hypertension: Yes Hx CVA: No Hx Heart Attack/AMI: No Hx Congestive Heart Failure: No Hx Diabetes: No Hx Deep Vein Thrombosis: No Hx Pulmonary Embolism: No Hx GERD: No Hx Liver Disease: No Hx Renal Disease: No Hx Sickle Cell Disease: No Hx Arthritis: No Hx Headaches / Migraines: No Hx Seizures: No Hx Kidney Stones: No Hx Psychiatric Treatment: Yes (Anxiety) Hx Asthma: Yes Hx COPD: Yes Hx Tuberculosis: No Hx Dementia: No Hx HIV: No Additional medical history: MVP, hypothyroidism. degenarative disc. elia; fibromyalgia - Surgical History Hx Cholecystectomy: Yes Additional Surgical History: neck, Tubal ligation, - Social History Smoking Status: Current Every Day Smoker - Medications Home Medications: Home Medications Medication Instructions Recorded Confirmed Last Taken Type tiZANidine [Zanaflex 4mg TAB] 1 - 2 tab PO DAILY 01/09/18 03/09/19 02/20/18 History hydrALAZINE [Apresoline TAB] 25 mg PO QDAY 03/09/19 03/09/19 Unknown History lisinopriL [Zestril TAB] 40 mg PO QDAY 03/09/19 03/09/19 Unknown History Naloxegol Oxalate [Movantik] 25 mg PO DAILY 03/10/19 03/10/19 03/07/19 History 25 mg Buprenorphine HCl [Belbuca] 150 mcg BC BID #6 film 03/12/19 Unknown Rx Diclofenac Sodium 50 mg PO BID #6 tablet. 03/12/19 Unknown Rx Ipratropium/Albuterol Sulfate 1 ampul IH TIDRT #120 ampul.neb 03/12/19 Unknown Rx [DUONEB *Not for PRN Use*] guaiFENesin/DEXTROMETHORPHAN 118 ml PO BID #100 ml 03/12/19 Unknown Rx [Robafen Dm Cgh-Chest Luisito Liq] levoFLOXacin [Levaquin] 750 mg PO QDAY #7 tablet 03/12/19 Unknown Rx methylPREDNISolone [Medrol 4MG 4 mg PO . DIR #1 tab.ds.pk 03/12/19 Unknown Rx DOSEPAK (21 tabs)] Naproxen 500 mg PO BID PRN #20 tablet 07/16/20 Unknown Rx ED Physical Exam - General Limitations: No Limitations General appearance: alert, in no apparent distress - Head Head exam: Present: atraumatic, normocephalic - Eye Eye exam: Present: normal appearance - Respiratory Respiratory exam: Absent: respiratory distress - Cardiovascular Cardiovascular Exam: Present: regular rate - Expanded Lower Extremity Exam Right Foot/Toe exam: Present: full ROM, tenderness (Tenderness to palpation noted to distal right metatarsal without obvious bruising or swelling; pedal pulses normal) Neuro vascular tendon exam: Absent: sensory deficit - Neurological Exam Neurological exam: Present: alert, oriented X3 - Psychiatric Psychiatric exam: Present: normal affect, normal mood - Skin Skin exam: Present: warm, dry, intact, normal color. Absent: rash ED Course Vital Signs 07/16/20 07/16/20 07/16/20 12:15 12:18 14:14 Temperature 97.6 F 98.0 F Pulse Rate 73 89 Respiratory 18 18 Rate Blood Pressure 153/77 Blood Pressure 129/73 [Right] O2 Sat by Pulse 98 99 Oximetry ED Medical Decision Making - Radiology Data Radiology results: report reviewed RIGHT FOOT 3 VIEWS INDICATION: 1st MT pain after crush injury. COMPARISON: None. IMPRESSION: Moderate to severe osteopenia is suspected. No acute osseous abnormality or significant joint pathology is demonstrated. Small plantar spur is noted. The soft tissues are unremarkable. - Medical Decision Making 55-year-old female patient presents with complaints of right foot pain starting last night. Patient states she dropped a architecture department chair on her foot. Pain is mostly over the large toe and medial portion of the foot. She denies any numbness or skin changes. She rates her pain as a 5/10 in severity and states it worsens with ambulation. Ibuprofen does improve pain per patient. X-rays negative for any acute bony abnormalities, however shows osteopenia. Inform patient of findings and importance of follow-up with PCP for a DEXA scan. She is well-appearing, she is stable for discharge home. Patient placed in Silvano wrap and provided with crutches. Discussed strict return precautions in detail with patient who verbalized understanding. Critical care attestation.: If time is entered above; I have spent that time in minutes in the direct care of this critically ill patient, excluding procedure time. ED Disposition Clinical Impression: Osteopenia, Crush injury of foot Disposition: TO HOME OR SELFCARE Is pt being admited?: No Condition: Stable Instructions: Osteoporosis, Crush Injury of the Foot Prescriptions: Naproxen 500 mg PO BID PRN #20 tablet PRN Reason: pain Referrals: [facility] [Provider Group] - 3-5 Days
--- NOTE | 2020-07-16 13:07 | XRay Report ---
RIGHT FOOT 3 VIEWS INDICATION: 1st MT pain after crush injury. COMPARISON: None. IMPRESSION: Moderate to severe osteopenia is suspected. No acute osseous abnormality or significant joint pathology is demonstrated. Small plantar spur is noted. The soft tissues are unremarkable. Signer Name: Jonel Rosado Jr, MD Signed: 07/16/2020 1:02 PM Workstation Name: [id number]
[2020-07-16] MEDS ORDERED: IBUPROFEN 800 MG TAB PO STA (13:47)
[2020-07-16] MEDS ORDERED: ACETAMINOPHEN 500 MG TAB PO STA (13:47)
[2020-07-16 14:14] VITALS: BP 129/73
== END 2020-07-16 14:20 | disposition home or self-care (01) ==
LOC: ED 11:48
DX: S97.81XA Crushing injury of right foot, initial encounter (principal); M85.871 Other specified disorders of bone density and structure, right ankle and foot; I10 Essential (primary) hypertension; F41.9 Anxiety disorder, unspecified; J44.9 Chronic obstructive pulmonary disease, unspecified; F17.200 Nicotine dependence, unspecified, uncomplicated; Z90.49 Acquired absence of other specified parts of digestive tract; Z98.890 Other specified postprocedural states; Z79.899 Other long term (current) drug therapy; X58.XXXA Exposure to other specified factors, initial encounter; Y93.89 Activity, other specified; Y92.89 Other specified places as the place of occurrence of the external cause; Y99.8 Other external cause status

== ENCOUNTER 2021-04-01 04:31 | Emergency (ER) | payer MEDICARE | END 2021-04-01 13:05 | disposition left against medical advice (07) | LOC: ED 04:31 | DX: K08.89 Other specified disorders of teeth and supporting structures (principal); Z53.21 Procedure and treatment not carried out due to patient leaving prior to being seen by health care provider ==